=== PATIENT | female | born 1970 | race Caucasian/White ===

== ENCOUNTER 2017-12-05 06:43 | Day surgery (SDC) | payer BC ==
[2017-12-05] MEDS ORDERED: Dextrose 5%-Lactated Ringers 1,000 ML IV SCH (07:30)
[2017-12-05] MEDS ORDERED: Glycopyrrolate 0.2 MG/ML 2 ML SDV IVPUSH ONE (08:15)
[2017-12-05] MEDS ORDERED: fentaNYL 100 MCG/2 ML SDV ONE (10:02)
[2017-12-05] MEDS ORDERED: Propofol 200 MG/20 ML SDV ONE (10:02)
[2017-12-05] MEDS ORDERED: Midazolam 1 MG/ML 2 ML SDV ONE (10:03)
[2017-12-05 12:09] VITALS: BP 158/91
--- NOTE | 2017-12-16 12:55 | OR ---
DATE OF PROCEDURE: 12/05/2017 PREOPERATIVE DIAGNOSIS: Gastroesophageal reflux disease refractory to medical management. POSTOPERATIVE DIAGNOSES: 1. Gastroesophageal reflux disease refractory to medical management with moderate-sized hiatal hernia and wide-open esophagogastric junction with free bilious reflux. 2. Mild antral gastritis. OPERATIVE PROCEDURES: Upper GI endoscopy with; 1. Biopsy of the esophagogastric junction for histologic evaluation. 2. Biopsies of antrum for CLOtest. ANESTHESIA: IV sedation. INDICATIONS FOR PROCEDURE: This is a 47-year-old presenting with gastroesophageal reflux disease that has become progressively refractory to medical management. After preoperative evaluation and discussion, she wished to proceed with an upper GI endoscopy with biopsies and/or dilation as indicated. Potential risks of the procedure including bleeding and perforation were discussed, and the patient wishes to proceed. DETAILS OF PROCEDURE: The patient was taken to the operating room and placed in a left lateral decubitus position. IV sedation was administered, after which the upper GI endoscope was passed through the length of the esophagus and into the stomach with retroflexion view of the fundus, thereafter through the pyloric channel to the junction of the third and fourth portions of the duodenum. The patient was noted to have a normal hypopharynx, larynx, and upper esophageal sphincter. As one approached the EG junction, there was a quite marked inflammation of the distal esophagus with a moderate-size, roughly 3 to 4 cm hiatal hernia. This resulted in an essentially wide-open intersection between the distal esophagus and stomach, and there was free bilious reflux recorded throughout the area when this region was visualized. The mucosa at the EG junction was edematous and friable. 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 The remainder of the stomach was unremarkable other than some mild redness in the antral area, the visualized portion of the pyloric sphincter and duodenum were unremarkable. At this point, biopsies were obtained from the antrum and sent for CLOtest for H. pylori. Multiple biopsies were then obtained from the area of esophagogastric junction targeting the columnar mucosal areas that might be occupying the Conway esophagus. Minimal bleeding from the biopsy sites was seen, and the procedure then concluded. It was discussed with the patient preoperatively that should the findings seem appropriate, she would like to proceed with a surgical antireflux procedure as despite medical management, she is waking up with bilious aspiration and such and would like in addition to get off medical management. She does not have any dysphasia per se, and the diagnosis of the reflux disease at this point is not, to an extent, uncertain. Given this, the patient would like to proceed with a Giovany fundoplication. We will wait until the latter part of next week so we have the pathology report back. Potential risks of the procedure including bleeding, infection, injury to underlying viscera, problems with the fundoplication such as dysphagia, gas-bloat syndrome, disorders of gastric emptying rate, as well as incomplete relief of the reflux symptoms were all reviewed, and the patient wishes to proceed. This will be scheduled for 12/12/2017. Mann Mendez MD /[id number]
== END 2017-12-05 12:45 | disposition home or self-care (01) ==
LOC: JP.SDS 06:43
PROVIDERS: ATTEND Surgery
DX: K21.9 Gastro-esophageal reflux disease without esophagitis (principal); K29.50 Unspecified chronic gastritis without bleeding; K44.9 Diaphragmatic hernia without obstruction or gangrene; K22.70 Barrett's esophagus without dysplasia; K20.9 Esophagitis, unspecified; E78.5 Hyperlipidemia, unspecified; E05.00 Thyrotoxicosis with diffuse goiter without thyrotoxic crisis or storm; E66.9 Obesity, unspecified; Z68.31 Body mass index [BMI] 31.0-31.9, adult; F41.9 Anxiety disorder, unspecified; F32.9 Major depressive disorder, single episode, unspecified; Z88.1 Allergy status to other antibiotic agents; Z88.2 Allergy status to sulfonamides; Z88.5 Allergy status to narcotic agent; Z88.8 Allergy status to other drugs, medicaments and biological substances
CPT/HCPCS: 36415; 43239; 80053; 83735; 85027; 87081; 88305; J2250; J2704; J3010; J3490; J7042

== ENCOUNTER 2017-12-12 09:16 | Inpatient (IN) | payer BC ==
[~2017-12-12 09:16] MED LIST: Bupivacaine 0.5%/EPINEPHrine 1:200,000 50 ML MDV ONE
[2017-12-12] MEDS ORDERED: Scopolamine 1.5 MG Transdermal Patch TRDERM SCH (09:30)
[2017-12-12] MEDS ORDERED: Acetaminophen 500 MG Tab PO ONE (09:30)
[2017-12-12] MEDS ORDERED: Dextrose 5%-Lactated Ringers 1,000 ML IV SCH (10:00)
[2017-12-12] MEDS ORDERED: Albuterol/Ipratropium 3.0-0.5 MG/3 ML Neb Soln NEB ONE (10:30)
[2017-12-12] MEDS ORDERED: Ondansetron 4 MG/2 ML SDV ONE (10:35)
[2017-12-12] MEDS ORDERED: Succinylcholine 200 MG/10 ML MDV ONE (10:35)
[2017-12-12] MEDS ORDERED: Rocuronium 50 MG/5 ML Vial ONE (10:35)
[2017-12-12] MEDS ORDERED: Propofol 200 MG/20 ML SDV ONE (10:35)
[2017-12-12] MEDS ORDERED: Neostigmine Methylsulfate 1 MG/ML 5 ML Syringe ONE (10:35)
[2017-12-12] MEDS ORDERED: Glycopyrrolate 0.2 MG/ML 5 ML MDV ONE (10:35)
[2017-12-12] MEDS ORDERED: Dexamethasone 4 MG/ML SDV ONE (10:35)
[2017-12-12] MEDS ORDERED: fentaNYL 250 MCG/5 ML SDV ONE ×2 (10:36→11:35)
[2017-12-12] MEDS ORDERED: ceFAZolin 2 GM in Sodium Chloride 0.9% 50 ML IV ONE (11:00)
[2017-12-12] MEDS ORDERED: Ketamine 500 MG/5 ML MDV IV SCH (11:15)
[2017-12-12] MEDS ORDERED: Ropivacaine 46 ML, Dexamethasone 8 MG, EPINEPHrine 0.4 MG, Sodium Chloride 0.9% 31.6 ML NERVRT SCH ×4 (11:15)
[2017-12-12] MEDS ORDERED: HYDROmorphone/Normal Saline 15 MG/30 ML PCA IV PRN (12:43)
[2017-12-12] MEDS ORDERED: hydrOXYzine HCl 100 MG/2 ML SDV IM ONE (12:51)
[2017-12-12] MEDS ORDERED: Naloxone 0.4 MG/ML SDV IV PRN (12:55)
[2017-12-12] MEDS ORDERED: Ondansetron 4 MG/2 ML SDV IV PRN (14:09)
[2017-12-12] MEDS ORDERED: Albuterol/Ipratropium 3.0-0.5 MG/3 ML Neb Soln INH PRN (14:10)
[2017-12-12] MEDS ORDERED: LORazepam 1 MG Tab PO PRN (14:12)
[2017-12-12] MEDS: Albuterol/Ipratropium 3.0-0.5 MG/3 ML Neb Soln INH SCH ×2 (14:31→21:29)
[2017-12-12] MEDS ORDERED: Pantoprazole 40 MG Vial IV SCH (15:30)
[2017-12-12] MEDS: Metoclopramide 10 MG/2 ML SDV IV SCH (16:16)
[2017-12-12] MEDS: VERIFY SCOP PATCH TOP SCH (17:57)
[2017-12-12] MEDS: ceFAZolin 2 GM in Sodium Chloride 0.9% 50 ML IV SCH (18:04)
[2017-12-12] MEDS: Dextrose 5%-Lactated Ringers 1,000 ML IV SCH (18:07)
[2017-12-12] MEDS: Azelastine Nasal Soln 30 ML Spray Bottle NASBOTH SCH (21:28)
[2017-12-12] MEDS: DULoxetine 20 MG Cap PO SCH (21:29)
[2017-12-12] MEDS: Fluticasone Propionate Nasal Spray 16 GM Bottle NASBOTH SCH (21:30)
[2017-12-13] MEDS: Metoclopramide 10 MG/2 ML SDV IV SCH ×2 (00:19→09:15)
[2017-12-13] MEDS: Dextrose 5%-Lactated Ringers 1,000 ML IV SCH (01:15)
[2017-12-13] MEDS: ceFAZolin 2 GM in Sodium Chloride 0.9% 50 ML IV SCH ×2 (02:03→09:40)
[2017-12-13] MEDS: Albuterol/Ipratropium 3.0-0.5 MG/3 ML Neb Soln INH SCH ×2 (07:15→10:57)
[2017-12-13] MEDS ORDERED: Dextrose 5%-Lactated Ringers 1,000 ML IV SCH (08:30)
[2017-12-13] MEDS ORDERED: HYDROmorphone 2 MG Tab PO PRN ×2 (08:33→08:34)
[2017-12-13 08:56] VITALS: BP 122/60
[2017-12-13] MEDS ORDERED: Estradiol 0.5 MG Tab PO SCH (09:00)
[2017-12-13] MEDS: Azelastine Nasal Soln 30 ML Spray Bottle NASBOTH SCH (09:16)
[2017-12-13] MEDS: DULoxetine 20 MG Cap PO SCH (09:17)
[2017-12-13] MEDS: VERIFY SCOP PATCH TOP SCH (09:18)
[2017-12-13] MEDS: Fluticasone Propionate Nasal Spray 16 GM Bottle NASBOTH SCH (09:18)
--- NOTE | 2017-12-15 14:29 | PN ---
DATE OF SERVICE: 12/13/2017 The patient is postop day #1 from a laparoscopic Giovany fundoplication. No major problems were noted overnight and liquid diet. We will go over to oral pain medication. Full-liquid diet today. She will likely be ready for discharge home tomorrow. Mann Mendez MD /[id number]
--- NOTE | 2017-12-19 14:00 | OR ---
DATE OF PROCEDURE: 12/12/2017 PREOPERATIVE DIAGNOSIS: Gastroesophageal reflux disease refractory to medical management. POSTOPERATIVE DIAGNOSES: 1. Gastroesophageal reflux disease refractory to medical management, associated with large paraesophageal diaphragmatic hernia. 2. Mediastinal lipoma. OPERATIVE PROCEDURES: Diagnostic laparoscopy with; 1. Repair of paraesophageal diaphragmatic hernia with mesh with Giovany fundoplication (08755). 2. Excision of mediastinal lipoma ([id number]). ANESTHESIA: General. INDICATION FOR PROCEDURE: This is a 47-year-old presenting with gastroesophageal reflux disease that has become refractory to medical management. After preoperative evaluation and discussion, she wished to proceed with a Giovany fundoplication. Potential risks of the procedure including bleeding, infection, injury to underlying viscera, problems with fundoplication such as dysphagia, gas-bloat syndrome, disorders of gastric emptying rate as well as incomplete relief of reflux symptoms were all reviewed along with the remote possibility of cardiopulmonary, septic, or hemorrhagic complications leading to , and the patient wishes to proceed. DETAILS OF PROCEDURE: The patient was taken to the operating room and after general endotracheal anesthesia was induced, she was converted to a lithotomy position. Barlow catheter was inserted, which was removed at the conclusion of the procedure, and the abdomen was prepped and draped. A 15 cm inferior and 5 cm left of xiphoid process, a transverse incision was made. The peritoneal cavity was entered under direct vision with an Optiview trocar and inflated to 15 mmHg pressure of CO2. The laparoscope was reinserted and no underlying trocar insertion site injury was seen. Bilateral transversus abdominis plane blocks were then placed with direct visualization of the needle in the correct plane from within and injection of the standard solution bilaterally. Following this, 4 additional trocars were placed across the upper and midabdomen, and general exploration was undertaken. Upon elevation of the liver, the patient was noted to have significant paraesophageal component to her hiatal hernia. The latter contained prolapse of some perigastric fat, fundus of the stomach, and a tongue of omentum in a plane anterior to the course of the esophagus. The hernia was reduced at this point and peritoneum overlying it was incised and was reflected downward. Peritoneum over distal esophagus on each side was then incised allowing dissection of the esophagus away from the crura bilaterally. The retroesophageal window was then established, and the attachments of the esophagus were then freed up with Harmonic scalpel such that a roughly 5 cm length of intraabdominal-esophageal length was reached. Posterior crural repair was accomplished with 0 Ethibond sutures reinforced with PTFE pledgets. Because of the size of the defect, a Phasix ST mesh was selected. This was cut such that it laid over the area of the crural repair and slightly on to the crura on each side and was fixed to the crura with some titanium tacking screws. The mesh was fixed as such the Seprafilm side of the mesh was facing the esophagus. The greater omentum was then taken down from the midbody of the stomach with Harmonic Scalpel. This was continued upward through the short gastric vessels including the posterior and short gastric vessels. This area was then freed up to the point where there was good mobilization of the fundus and it was retrieved through the retroesophageal window. A guidewire was then passed per Anesthesia orally and over this, a 54-Vietnamese Savary dilator was positioned across the esophagus and EG junction. A three-stitch 2 cm fundoplication was then accomplished with 0 Ethibond sutures reinforced with PTFE pledgets. Each of these sutures included bites of the underlying esophagus. The uppermost suture included the attachment to the overlying diaphragm and one additional stitch and pledget were then placed between the left side of the fundoplication and the overlying diaphragm as well. At that point, the dilator and wire were removed and fundoplication judged to be satisfactorily floppy. During the mediastinal dissection, a lipoma was identified, and this was excised and sent as a separate pathologic specimen. At that point, no further problems were noted. Trocars were removed, and the peritoneal cavity deflated. Incision at the 12-mm trocar site was closed at the fascia level with 0 Vicryl stitch and other sites closed with 4-0 Vicryl skin stitch. Dressing was applied. The patient was taken to the recovery room in a satisfactory condition. There were no evident complications. Mann Mendez MD /[id number]
== END 2017-12-13 13:40 | disposition home or self-care (01) | DRG 220 ==
LOC: JP.MS 09:16 → JP.SDS 09:16 → JP.2SS 12:35 → EDSTATUS 13:45
PROVIDERS: ADMIT Surgery; ATTEND Surgery
PROC: 0DV44ZZ Restriction of Esophagogastric Junction, Percutaneous Endoscopic Approach (ICD-10-PCS; principal; 2017-12-12)
PROC: 0BQT4ZZ Repair Diaphragm, Percutaneous Endoscopic Approach (ICD-10-PCS; 2017-12-12)
PROC: 0WBC4ZX Excision of Mediastinum, Percutaneous Endoscopic Approach, Diagnostic (ICD-10-PCS; 2017-12-12)
PROC: 3E0T3BZ Introduction of Anesthetic Agent into Peripheral Nerves and Plexi, Percutaneous Approach (ICD-10-PCS; 2017-12-12)
DX: K21.9 Gastro-esophageal reflux disease without esophagitis (principal); K44.9 Diaphragmatic hernia without obstruction or gangrene; D17.4 Benign lipomatous neoplasm of intrathoracic organs
CPT/HCPCS: 88304; 94640; 94762; A9270-GY; C1781; C9113; J0171; J0330; J0690; J1100; J1170; J2405; J2704; J2710; J2765; J2795; J3010; J3410; J3490; J7042; J7050; J7620-GY

== ENCOUNTER 2018-08-30 10:10 | Emergency (ER) | payer BC ==
[2018-08-30 10:29] VITALS: BP 148/86
--- NOTE | 2018-08-30 11:00 | EDM.PDOC ---
ED HPI GENERAL MEDICAL PROBLEM - General Chief Complaint: Back Pain or Injury Stated Complaint: BACK PAIN WAITING FOR MRI Time Seen by Provider: 08/30/18 10:51 Source of Information: Reports: Patient History Limitations: Reports: No Limitations - History of Present Illness INITIAL COMMENTS - FREE TEXT/NARRATIVE: Patient presents from home describing worsening long-term back pain over recent time. She has a history of prior back trouble surgery 15 or so years ago. She recently was seen in primary care and had cyclobenzaprine prescribed for symptoms. It hasn't really changed much with her overall back pain scenario. The are attempting to get her scheduled for repeat lumbar spine MRI as it has been approximately 2 years since her last one. At that time it did show a number of degenerative changes and apparently disc displacement. She has noticed pain going from the low left portion of the back through the buttock as well as thigh and leg. There is a tingling feeling through much of the left foot. She has had to have her helped her get out of chairs and other positions as its been very uncomfortable to change position. She describes having leg weakness but what she means as it hurts when she attempts to use the left leg. No falls or other injuries recently. Onset: Gradual Duration: Chronic, Getting Worse Location: Reports: Back, Lower Extremity, Left Quality: Reports: Ache, Burning, Stabbing Lower Back Pain Score (Numeric/FACES): 9 - Related Data Allergies Allergy/AdvReac Type Severity Reaction Status Date / Time amoxicillin [Amoxicillin] Allergy Hives Verified 08/30/18 10:28 methylprednisolone sodium Allergy Swelling Verified 08/30/18 10:28 succinate [From Solu-Medrol] oxycodone HCl [From Percocet] Allergy Hives Verified 08/30/18 10:28 Sulfa (Sulfonamide Allergy Cannot Verified 08/30/18 10:28 Antibiotics) Remember sulfamethoxazole Allergy Cannot Verified 08/30/18 10:28 [From Bactrim] Remember trimethoprim [From Bactrim] Allergy Cannot Verified 08/30/18 10:28 Remember Home Meds: Home Meds Albuterol [Proventil HFA] 2 puff PO Q4H PRN 07/01/15 [History] Multivitamin [Multi-Vitamin Daily] 1 tab PO DAILY 07/01/15 [History] DULoxetine HCl [Cymbalta] 20 mg PO BID 02/23/16 [History] LORazepam [Ativan] 1 mg PO TID 09/18/17 [History] Azelastine [Astelin Nasal Soln] 1 spray NASBOTH BID 12/03/17 [History] Cholecalciferol (Vitamin D3) [Vitamin D3] 4,000 unit PO DAILY 12/03/17 [History] Diclofenac Sodium [Voltaren] 2 gram TOP QID 12/03/17 [History] Fluticasone Propionate [Flonase Allergy Relief] 1 spray NASBOTH BID 12/03/17 [ History] Acetaminophen [Tylenol] 650 mg PO Q4H PRN #60 tab 12/13/17 [Rx] Past Medical History HEENT History: Reports: Allergic Rhinitis, Impaired Vision Cardiovascular History: Reports: Heart Murmur Respiratory History: Reports: Other (See Below) Other Respiratory History: inhaler for allergies, uses as needed Gastrointestinal History: Reports: Chronic Diarrhea, GERD, Hiatal Hernia Genitourinary History: Reports: None MANAGER BAR History: Reports: Endometriosis, Polycystic Ovaries, , Spontaneous Musculoskeletal History: Reports: Arthritis, Back Pain, Chronic, Fibromyalgia, Neck Pain, Chronic Neurological History: Reports: Headaches, Chronic, Migraines Psychiatric History: Reports: Anxiety, Depression, PTSD Other Endocrine/Metabolic History: graves disease Hematologic History: Reports: Anemia Other Hematologic History: anemic with - Infectious Disease History Infectious Disease History: Reports: Chicken Pox, Measles - Past Surgical History Head Surgeries/Procedures: Reports: None HEENT Surgical History: Reports: Other (See Below) Other HEENT Surgeries/Procedures: permanent retainer top and bottom of mouth Cardiovascular Surgical History: Reports: None Respiratory Surgical History: Reports: None GI Surgical History: Reports: Colonoscopy, EGD, Other (See Below) Female Surgical History: Reports: Tubal Ligation, Other (See Below) Endocrine Surgical History: Reports: None Neurological Surgical History: Reports: Lumbar Spine, Other (See Below) Musculoskeletal Surgical History: Reports: None Dermatological Surgical History: Reports: None Social & Family History - Family History Family Medical History: Noncontributory - Tobacco Use Smoking Status *Q: Former Smoker Used Tobacco, but Quit: Yes Month/Year Tobacco Last Used: 1999 Second Hand Smoke Exposure: No - Caffeine Use Caffeine Use: Reports: Coffee Caffeine Use Comment: 2 cups daily - Recreational Drug Use Recreational Drug Use: No ED ROS GENERAL - Review of Systems Review Of Systems: See Below Constitutional: Denies: Fever, Chills Musculoskeletal: Reports: Back Pain Neurological: Reports: Tingling (Left leg/thigh) ED EXAM,LOWER BACK PAIN/INJURY - Physical Exam Exam: See Below Exam Limited By: No Limitations General Appearance: Mild Distress Back Exam: CVA Tenderness (L), Paraspinal Tenderness, Vertebral Tenderness. No : Muscle Spasm Extremities: Other (Increased pain with left hip extension as well as dorsiflexion of the foot.) Neurological: Normal Reflexes Course - Vital Signs Last Recorded V/S: Last Vital Signs Temp 36.2 C 08/30/18 10:31 Pulse 75 08/30/18 10:31 Resp 17 08/30/18 10:31 BP 148/86 H 08/30/18 10:31 Pulse Ox 92 L 08/30/18 10:31 - Re-Assessments/Exams Free Text/Narrative Re-Assessment/Exam: 08/30/18 11:08 Patient's description of symptoms and exam are consistent with a lumbosacral radiculopathy. She really has had minimal results from Toradol, ibuprofen, cyclobenzaprine. There are no red flag symptoms. Prescriptions sent for indomethacin 50 mg, 21 tablets; hydrocodone 5/325 mg, 20 tablets; both use as directed. She is aware of other palliative measures for her back including stretching, walking, cold packs etc. She can use the previously prescribed cyclobenzaprine if she wishes. She should not take ibuprofen with indomethacin. Contact primary care this next week to ask about status of MR imaging. Reasons to return to emergency department reviewed. Departure - Departure Time of Disposition: 11:10 Disposition: Home, Self-Care 01 Condition: Good Clinical Impression: Sciatica, Sciatica associated with disorder of lumbosacral spine - Discharge Information *PRESCRIPTION DRUG MONITORING PROGRAM REVIEWED*: Not Applicable *COPY OF PRESCRIPTION DRUG MONITORING REPORT IN PATIENT RUMA: Not Applicable Instructions: Sciatica, [id number] Referrals: Ashley Hernadez PA [Primary Care Provider] - Forms: ED Department Discharge Additional Instructions: Use cold packs or other temporizing measures to painful area as he feel necessary. Stop ibuprofen. He may continue the cyclobenzaprine if you wish. Start indomethacin and hydrocodone today. Be as mobile as you're able. If you have of leg weakness, not pain with movement however, or loss of ability to hold urine, return to emergency department.
== END 2018-08-30 11:24 | disposition home or self-care (01) ==
LOC: JP.ED 10:10
DX: M54.32 Sciatica, left side (principal); M51.36 Other intervertebral disc degeneration, lumbar region; F41.9 Anxiety disorder, unspecified; F32.9 Major depressive disorder, single episode, unspecified; Z87.891 Personal history of nicotine dependence; Z88.1 Allergy status to other antibiotic agents; Z88.5 Allergy status to narcotic agent; Z88.2 Allergy status to sulfonamides; Z79.899 Other long term (current) drug therapy
CPT/HCPCS: 99283

== ENCOUNTER 2020-08-25 08:14 | Day surgery (SDC) | payer BC, MEDICARE ==
[2020-08-25] MEDS ORDERED: Dextrose 5%-Lactated Ringers 1,000 ML IV SCH (09:00)
[2020-08-25] MEDS ORDERED: Midazolam 1 MG/ML 2 ML SDV ONE (09:04)
[2020-08-25] MEDS ORDERED: Propofol 200 MG/20 ML SDV ONE (09:04)
[2020-08-25] MEDS ORDERED: fentaNYL 100 MCG/2 ML SDV ONE (09:04)
[2020-08-25] MEDS ORDERED: Glycopyrrolate 0.2 MG/ML 2 ML SDV IVPUSH ONE (09:30)
[2020-08-25 11:41] VITALS: BP 171/87; PULSE 64
--- NOTE | 2020-09-07 08:34 | OR ---
DATE OF PROCEDURE: 08/25/2020 SURGEON: Mann Mendez MD PREOPERATIVE DIAGNOSES: Dysphagia, bloating, and recurrent reflux symptoms, status post previous Giovany fundoplication. POSTOPERATIVE DIAGNOSES: 1. Intact Giovany fundoplication with a small to moderate recurrence of diaphragmatic hernia. 2. Large amount of retained gastric food (bezoar) with diffuse gastritis consistent with severe gastroparesis. OPERATIVE PROCEDURE: Esophagogastroduodenoscopy with antral biopsies for CLOtest. ANESTHESIA: IV sedation. INDICATION FOR PROCEDURE: The patient is status post previous Giovany fundoplication. She has had increasing problems with some recurrent reflux, but more significantly dysphagia and major problem with postprandial bloating. The plan is to proceed with upper GI endoscopy with biopsies as indicated. Potential risks including bleeding and perforation were discussed, and the patient wishes to proceed. DETAILS OF PROCEDURE: The patient was taken to the operating room and placed in the left lateral decubitus position. IV sedation was administered, after which the upper GI endoscope was passed orally through the length of the esophagus into the stomach with retroflexion view of the fundus, and thereafter through the pyloric channel into the proximal duodenum. Findings included some mild redness in the laryngopharyngeal area. The upper esophageal sphincter and esophageal body were unremarkable as one approached the EG junction. There was a small amount of inflammation at the EG junction, but was otherwise intact and this was on retroflexion within the stomach, there was an element of recurrence of the diaphragmatic hernia with a portion of the fundoplication and the EG junction area passing up to within the opening of the diaphragm. Within the stomach, there was a large gastric bezoar present with large amount of retained fluid present in that area. This was associated with diffuse redness in the gastric wall likely related to contact with the bezoar. The overall picture was consistent with gastroparesis. The scope could easily pass through the pylorus into the proximal duodenum, i.e., there was no evidence of any mechanical obstruction, i.e., no gastric outlet obstruction noted. At this point, biopsies were obtained from the antrum and sent for CLOtest for H pylori. Minimal bleeding from the biopsy site was seen and the procedure then concluded. After the patient had recovered from anesthetic, a long discussion was held with the patient and her mother who was present regarding treatment options. It is very unlikely that the medical management would be satisfactory long-term, particularly with likely progressively increasing the size of the recurrent hiatal hernia. Given this, with the concurrent diagnosis of gastroparesis, the resectional procedure would probably be best along with concurrent repair of the diaphragmatic hernia. This would involve a high partial gastrectomy with Kamila-en-Y reconstruction. The patient's BMI is 32.5, so the weight loss typically is seen with this type of procedure and would be somewhat beneficial that will sometimes onto the esophagus when the proximal anastomosis was gone over and the fact that this physiologically is not at all significantly different from an anastomosis to a very high gastric pouch. Potential risks were reviewed with the patient and she was given a general article from the [facility] regarding resectional procedures for gastroesophageal reflux disease found in previous fundoplications, and she will be calling us after discussion of this with her and her family members and answering any additional questions in the interim in terms of when and if to proceed with the above surgical procedure. Mann Mendez MD /[id number]
== END 2020-08-25 13:00 | disposition home or self-care (01) ==
LOC: JP.SDS 08:14
PROVIDERS: ATTEND Surgery
DX: K20.90 Esophagitis, unspecified without bleeding (principal); K44.9 Diaphragmatic hernia without obstruction or gangrene; J45.909 Unspecified asthma, uncomplicated; E05.90 Thyrotoxicosis, unspecified without thyrotoxic crisis or storm; E78.00 Pure hypercholesterolemia, unspecified; Z98.890 Other specified postprocedural states
CPT/HCPCS: 43239; 87081; J2250; J2704; J3010; J3490; J7121

== ENCOUNTER 2020-08-29 07:53 | Inpatient (IN) | payer BC, MEDICARE ==
[~2020-08-29 07:53] MED LIST changes: -Bupivacaine 0.5%/EPINEPHrine 1:200,000 50 ML MDV ONE; +cefOXitin 2 GM Vial ONE
[2020-08-29] MEDS ORDERED: Acetaminophen 500 MG Tab PO ONE (08:15)
[2020-08-29] MEDS ORDERED: Scopolamine 1.5 MG Transdermal Patch TOP ONE (08:15)
[2020-08-29] MEDS ORDERED: Albuterol/Ipratropium 3.0-0.5 MG/3 ML Neb Soln NEB ONE (09:00)
[2020-08-29] MEDS ORDERED: Dextrose 5%-Lactated Ringers 1,000 ML IV SCH (09:00)
[2020-08-29] MEDS ORDERED: diphenhydrAMINE 25 MG Cap PO PRN (09:04)
[2020-08-29] MEDS ORDERED: Naloxone 0.4 MG/ML SDV IVPUSH PRN (09:04)
[2020-08-29] MEDS ORDERED: diphenhydrAMINE 50 MG/ML SDV IVPUSH PRN (09:04)
[2020-08-29] MEDS ORDERED: Ondansetron 4 MG/2 ML SDV IVPUSH PRN (09:04)
[2020-08-29] MEDS: HYDROmorphone/Normal Saline 15 MG/30 ML PCA IV PRN (09:58)
[2020-08-29] MEDS ORDERED: cefOXitin 2 GM in Sodium Chloride 0.9% 50 ML IV ONE (10:00)
[2020-08-29] MEDS ORDERED: fentaNYL 250 MCG/5 ML SDV ONE ×2 (10:18→11:17)
[2020-08-29] MEDS ORDERED: Dexamethasone 4 MG/ML SDV ONE (10:19)
[2020-08-29] MEDS ORDERED: Ondansetron 4 MG/2 ML SDV ONE (10:19)
[2020-08-29] MEDS ORDERED: Glycopyrrolate 0.2 MG/ML 5 ML MDV ONE (10:19)
[2020-08-29] MEDS ORDERED: Succinylcholine 200 MG/10 ML MDV ONE (10:19)
[2020-08-29] MEDS ORDERED: Neostigmine Methylsulfate 1 MG/ML 5 ML Syringe ONE (10:19)
[2020-08-29] MEDS ORDERED: Propofol 200 MG/20 ML SDV ONE (10:19)
[2020-08-29] MEDS ORDERED: Rocuronium 50 MG/5 ML Vial ONE (10:19)
[2020-08-29] MEDS ORDERED: Lactated Ringers 1,000 ML ONE (10:22)
[2020-08-29] MEDS ORDERED: Ketamine 500 MG/5 ML MDV IV SCH (10:30)
[2020-08-29] MEDS ORDERED: Magnesium Sulfate 2.8 GM in Sodium Chloride 0.9% 100 ML IV SCH ×2 (10:30)
[2020-08-29] MEDS ORDERED: Ketamine 50 MG in Sodium Chloride 0.9% 49.5 ML IV SCH (10:30)
[2020-08-29] MEDS ORDERED: Labetalol 20 MG/4 ML Syringe ONE (11:36)
[2020-08-29] MEDS: Meropenem 500 MG SDV ONE ×2 (11:44→12:15)
[2020-08-29] MEDS ORDERED: hydrOXYzine HCL 100 MG/2 ML SDV IM ONE (13:05)
[2020-08-29] MEDS ORDERED: fentaNYL 100 MCG/2 ML SDV IVPUSH ONE (13:07)
[2020-08-29] MEDS ORDERED: Naloxone 0.4 MG/ML SDV IV PRN (14:00)
[2020-08-29] MEDS: Dextrose 5%-Lactated Ringers 1,000 ML IV SCH (14:26)
[2020-08-29] MEDS: Cyclobenzaprine 10 MG Tab PO PRN (14:41)
[2020-08-29] MEDS: Albuterol/Ipratropium 3.0-0.5 MG/3 ML Neb Soln INH SCH ×2 (14:55→20:58)
[2020-08-29] MEDS ORDERED: Calcium Gluconate 10% 1 GM/10 ML SDV IVPUSH PRN (15:00)
[2020-08-29] MEDS ORDERED: Labetalol 20 MG/4 ML Syringe IVPUSH PRN (15:00)
[2020-08-29] MEDS ORDERED: Acetaminophen 500 MG Tab PO PRN (15:00)
[2020-08-29] MEDS ORDERED: Metoclopramide 10 MG/2 ML SDV IVPUSH PRN (15:00)
[2020-08-29] MEDS ORDERED: Albuterol/Ipratropium 3.0-0.5 MG/3 ML Neb Soln INH PRN (15:00)
[2020-08-29] MEDS ORDERED: hydrOXYzine HCL 100 MG/2 ML SDV IM PRN (15:00)
[2020-08-29] MEDS ORDERED: Pantoprazole 40 MG Vial IVPUSH SCH (16:00)
[2020-08-29] MEDS ORDERED: MVI, Adult with Vitamin K 10 ML, Thiamine 200 MG, Zinc/Copper/Manganese/Selenium 1 ML i... IV SCH ×4 (16:00)
[2020-08-29] MEDS: Acetaminophen 500 MG Tab PO SCH (16:05)
[2020-08-29] MEDS: cefOXitin 2 GM in Sodium Chloride 0.9% 50 ML IV SCH ×2 (16:16→21:02)
[2020-08-29] MEDS: Heparin Sodium 5,000 Units/ML Vial SUBCUT SCH (20:58)
[2020-08-29] MEDS: Azelastine Nasal Soln 30 ML Spray Bottle NASBOTH SCH ×2 (20:59→21:02)
[2020-08-30] MEDS: Acetaminophen 500 MG Tab PO SCH ×3 (00:10→17:39)
[2020-08-30] MEDS: Dextrose 5%-Lactated Ringers 1,000 ML IV SCH ×4 (00:11→14:35)
[2020-08-30] MEDS: cefOXitin 2 GM in Sodium Chloride 0.9% 50 ML IV SCH ×4 (03:37→21:35)
[2020-08-30] MEDS ORDERED: Iopamidol 612 MG/ML 50 ML SDV PO STA (04:08)
[2020-08-30] MEDS: Albuterol/Ipratropium 3.0-0.5 MG/3 ML Neb Soln INH SCH ×4 (07:04→20:20)
[2020-08-30] MEDS: Levothyroxine 25 MCG Tab PO SCH (07:31)
[2020-08-30] MEDS: SCOPOLAMINE PATCH CHECK TOP SCH (08:57)
[2020-08-30] MEDS: Metoprolol Succinate 25 MG Tab.ER PO SCH (08:58)
[2020-08-30] MEDS: Estradiol 0.5 MG Tab PO SCH (08:59)
[2020-08-30] MEDS: Fluticasone Propionate Nasal Spray 16 GM Bottle NAS SCH (08:59)
[2020-08-30] MEDS: Azelastine Nasal Soln 30 ML Spray Bottle NASBOTH SCH ×2 (08:59→20:29)
[2020-08-30] MEDS: Heparin Sodium 5,000 Units/ML Vial SUBCUT SCH ×2 (08:59→20:20)
--- NOTE | 2020-08-30 09:11 | CRLCR ---
Indication: Gastric sleeve surgery Technique: Upper GI 3 views Comparison: None Findings/Impression: Postoperative findings from gastric sleeve surgery. Oral contrast passes through the stomach into the small bowel. No sign of contrast extravasation/leak. No acute abnormality evident. Dictated by: Brian Man MD @ 08/30/2020 09:08:59 (Electronically Signed)
--- NOTE | 2020-08-30 09:54 | PN ---
DATE OF SERVICE: 08/30/2020 SUBJECTIVE: Hortencia states that she has most of her pain when she swallows. It feels like the liquid is not going all the way down. She has been on step 1. Upper GI this morning was normal. Pain is controlled with the PHYSICIAN REPRESENTATIVE. Her oral intake was 210, output 1135 of clear tejas urine via Barlow catheter, and TYRA drain put out 190 mL of a red drainage. REVIEW OF SYSTEMS: Remainder of review of systems negative for any pertinent positives and negatives. OBJECTIVE: GENERAL: Hortencia Sanchez is a pleasant 50-year-old female. She is alert and oriented, lying in bed with the head of bed elevated. VITAL SIGNS: TPR is 97.7, 77, 16, blood pressure 161/80. HEENT: Negative. NECK: Supple. HEART: Regular rate and rhythm. LUNGS: Clear. ABDOMEN: Dressings dry and intact. TYRA drain as above. Abdominal binder on. EXTREMITIES: Without peripheral edema. ASSESSMENT: Exploratory laparotomy with: 1. Esophagogastrectomy with Kamila-en-Y esophagojejunostomy. 2. Repair of recurrent paraesophageal hernia. POSTOPERATIVE DIAGNOSIS: Recurrent paraesophageal hernia with marked inflammation at the esophagogastric junction. Date of procedure 08/29/2020. Surgeon: Mann Mendez MD. PLAN: 1. Discontinue Barlow. 2. May shower. 3. Decrease IV to 100 mL per hour. 4. Step-2 gastric bypass diet without cereal. 5. Discontinue cardiac monitoring. 6. Communication order to drink 3 med cups per hour, record at bedside or 1 every 20 minutes. 7. We will evaluate p.r.n. or in a.m. Maya Jiang PA-C /[id number]
[2020-08-30] MEDS ORDERED: MVI, Adult with Vitamin K 10 ML, Thiamine 200 MG, Zinc/Copper/Manganese/Selenium 1 ML i... IV SCH ×4 (16:00)
[2020-08-30] MEDS: Pantoprazole 40 MG Delayed-Release Granules 1 Packet PO SCH (17:05)
[2020-08-30] MEDS ORDERED: Dexamethasone 4 MG/ML SDV IVPUSH ONE (17:34)
[2020-08-30] MEDS ORDERED: Acetaminophen Soln 160 MG/5 ML UD Cup PO SCH (18:00)
--- NOTE | 2020-08-30 18:57 | PCM.EKG ---
#1 Interpretation EKG Date: 08/29/20 Time: 08:16 Rhythm: NSR Rate (Beats/Min): 63 [place]: Normal P-Wave: Present QRS: Normal ST-T: Normal QT: Normal Comparison: NA - No Prior EKG EKG Interpretation Comments: LVH present
[2020-08-30] MEDS: Acetaminophen Soln 650 MG/20.3 ML UD Cup PO SCH (21:54)
[2020-08-31] MEDS: Dextrose 5%-Lactated Ringers 1,000 ML IV SCH ×2 (02:20→11:30)
[2020-08-31] MEDS: Acetaminophen Soln 650 MG/20.3 ML UD Cup PO SCH ×6 (02:34→22:51)
[2020-08-31] MEDS: Ondansetron 4 MG Tab.DIS PO PRN (05:15)
[2020-08-31] MEDS: Albuterol/Ipratropium 3.0-0.5 MG/3 ML Neb Soln INH SCH ×4 (07:33→20:34)
[2020-08-31] MEDS: Metoclopramide 10 MG/2 ML SDV IV SCH ×3 (08:26→20:34)
[2020-08-31] MEDS: Metoprolol Succinate 25 MG Tab.ER PO SCH (08:28)
[2020-08-31] MEDS: Scopolamine 1.5 MG Transdermal Patch TRDERM SCH (08:29)
[2020-08-31] MEDS: Levothyroxine 25 MCG Tab PO SCH (08:29)
[2020-08-31] MEDS: Estradiol 0.5 MG Tab PO SCH (08:29)
[2020-08-31] MEDS: Azelastine Nasal Soln 30 ML Spray Bottle NASBOTH SCH ×2 (08:30→20:32)
[2020-08-31] MEDS: Fluticasone Propionate Nasal Spray 16 GM Bottle NAS SCH (08:30)
[2020-08-31] MEDS: SCOPOLAMINE PATCH CHECK TOP SCH (08:31)
[2020-08-31] MEDS: Dexamethasone 4 MG/ML SDV IVPUSH SCH ×2 (08:43→20:33)
[2020-08-31] MEDS: Heparin Sodium 5,000 Units/ML Vial SUBCUT SCH ×2 (08:44→20:34)
[2020-08-31] MEDS ORDERED: Cyanocobalamin (Vitamin B12) 1,000 MCG/ML SDV IM ONE (09:00)
[2020-08-31] MEDS: HYDROmorphone/Normal Saline 15 MG/30 ML PCA IV PRN (10:15)
--- NOTE | 2020-08-31 11:37 | PN ---
DATE OF SERVICE: 08/31/2020 SUBJECTIVE: Hortencia had episodes of nausea, difficulty swallowing. Her oral intake was 775, output 3000. TYRA drain put out 80 mL of a light red drainage. She did receive Decadron 2 mg of IV yesterday, which she states did not help with the swelling at anastomosis. Her scopolamine patch she said fell off on the day of surgery. REVIEW OF SYSTEMS: Remainder of review of systems negative for any pertinent positives and negatives. OBJECTIVE: GENERAL: Hortencia is a pleasant 50-year-old female. She looks like she is not feeling well. VITAL SIGNS: TPR is 96.9, 77, 16, blood pressure is 163/92. HEENT: Negative. NECK: Supple. HEART: Regular rate and rhythm. LUNGS: Clear. ABDOMEN: Dressings dry and intact. TYRA drain intact. EXTREMITIES: Without peripheral edema. ASSESSMENT: Exploratory laparotomy with: 1. Esophagogastrectomy with Kamila-en-Y esophagojejunostomy. 2. Repair of recurrent paraesophageal hernia. POSTOPERATIVE DIAGNOSES: 1. Recurrent paraesophageal hernia with marked inflammation at the esophagogastric junction. 2. Date of procedure: 08/29/2020. Surgeon: Mann Mendez MD. PLAN: 1. Reglan 10 mg IV q.6 hours scheduled. 2. Scopolamine patch to be replaced. 3. Decadron 2 mg IV q.12 hours. 4. Continue use of incentive spirometer and ambulation. 5. We will evaluate p.r.n. or in a.m. Maya Jiang PA-C /[id number]
[2020-08-31] MEDS: Pantoprazole 40 MG Delayed-Release Granules 1 Packet PO SCH (17:00)
[2020-08-31] MEDS: diphenhydrAMINE 50 MG/ML SDV IVPUSH PRN (22:55)
[2020-09-01] MEDS: Acetaminophen Soln 650 MG/20.3 ML UD Cup PO SCH ×6 (02:17→21:52)
[2020-09-01] MEDS: Metoclopramide 10 MG/2 ML SDV IV SCH ×4 (02:17→19:27)
[2020-09-01] MEDS: diphenhydrAMINE 50 MG/ML SDV IVPUSH PRN (05:24)
[2020-09-01] MEDS: Levothyroxine 25 MCG Tab PO SCH (07:41)
[2020-09-01] MEDS: Heparin Sodium 5,000 Units/ML Vial SUBCUT SCH ×2 (07:51→19:27)
[2020-09-01] MEDS: Magnesium Hydroxide 400 MG/5 ML Susp 30 ML Cup PO SCH ×2 (09:46→20:55)
[2020-09-01] MEDS: Albuterol/Ipratropium 3.0-0.5 MG/3 ML Neb Soln INH SCH ×4 (09:46→20:55)
[2020-09-01] MEDS: Bisacodyl 5 MG Tab PO SCH ×2 (09:46→20:54)
[2020-09-01] MEDS: Estradiol 0.5 MG Tab PO SCH (09:48)
[2020-09-01] MEDS: Fluticasone Propionate Nasal Spray 16 GM Bottle NAS SCH (09:48)
[2020-09-01] MEDS: Azelastine Nasal Soln 30 ML Spray Bottle NASBOTH SCH ×2 (09:49→20:54)
[2020-09-01] MEDS: SCOPOLAMINE PATCH CHECK TOP SCH (09:50)
[2020-09-01] MEDS: Metoprolol Succinate 25 MG Tab.ER PO SCH (09:51)
[2020-09-01] MEDS: HYDROmorphone 2 MG Tab PO PRN ×4 (09:56→23:15)
[2020-09-01] MEDS: Dextrose 5%-Lactated Ringers 1,000 ML IV SCH ×2 (10:37→20:59)
--- NOTE | 2020-09-01 13:00 | PN ---
DATE OF SERVICE: 09/01/2020 SUBJECTIVE: Hortencia has had the Decadron every 4 hours. She feels like she can swallow better. She states it is slow but improving. Oral intake was 1450. Urine output 3200. TYRA drain put out 25 mL of a light red drainage. REVIEW OF SYSTEMS: Remainder of review of systems negative for any pertinent positives and negatives. OBJECTIVE: GENERAL: Hortencia is a pleasant 50-year-old female. She is alert and orientated. VITAL SIGNS: TPR 98.8, 64, 16, blood pressure 155/83. HEENT: Negative. NECK: Supple. HEART: Regular rate and rhythm. LUNGS: Clear. ABDOMEN: Aquacel dressing is on. EXTREMITIES: Without peripheral edema. ASSESSMENT: Exploratory laparotomy with: 1. Esophagogastrectomy with Kamila-en-Y esophagojejunostomy. 2. Repair of recurrent paraesophageal hernia. POSTOPERATIVE DIAGNOSES: 1. Recurrent paraesophageal hernia with marked inflammation at the esophagogastric junction. 2. Date of procedure: 08/29/2020. Surgeon: Mann Mendez MD. PLAN: 1. Discontinue Decadron. 2. Step 2 gastric bypass diet without cereal. 3. Milk of magnesia 30 mL p.o. b.i.d. 4. Dilaudid 2 to 4 mg every 4 hours p.r.n. pain. 5. 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 6. Dulcolax tablets 2 b.i.d. until the patient has bowel movement. 7. We will evaluate p.r.n. or in a.m. Maya Jiang PA-C /[id number]
[2020-09-01] MEDS: Pantoprazole 40 MG Delayed-Release Granules 1 Packet PO SCH (16:25)
[2020-09-01] MEDS: Ondansetron 4 MG Tab.DIS PO PRN (18:15)
[2020-09-02] MEDS: Metoclopramide 10 MG/2 ML SDV IV SCH ×4 (01:47→21:33)
[2020-09-02] MEDS: Acetaminophen Soln 650 MG/20.3 ML UD Cup PO SCH ×2 (01:47→06:03)
[2020-09-02] MEDS: Cyclobenzaprine 10 MG Tab PO PRN (01:50)
[2020-09-02] MEDS: Ondansetron 4 MG Tab.DIS PO PRN (01:50)
[2020-09-02] MEDS: Dextrose 5%-Lactated Ringers 1,000 ML IV SCH ×2 (07:00→17:13)
[2020-09-02] MEDS: Albuterol/Ipratropium 3.0-0.5 MG/3 ML Neb Soln INH SCH ×4 (07:03→21:34)
[2020-09-02] MEDS: Heparin Sodium 5,000 Units/ML Vial SUBCUT SCH ×2 (07:35→21:32)
[2020-09-02] MEDS: Levothyroxine 25 MCG Tab PO SCH ×2 (07:36→08:41)
[2020-09-02] MEDS: predniSONE 20 MG Tab PO SCH ×3 (07:36→14:19)
[2020-09-02] MEDS: Ondansetron 4 MG/2 ML SDV IVPUSH PRN ×2 (08:37→12:47)
[2020-09-02] MEDS: Azelastine Nasal Soln 30 ML Spray Bottle NASBOTH SCH ×2 (08:40→21:34)
--- NOTE | 2020-09-02 08:44 | PN ---
DATE OF SERVICE: 09/02/2020 SUBJECTIVE: Hortencia said she felt good yesterday, until in the middle of the night she felt like it was difficult for her to swallow again. Things felt tight. She is able to swallow pills and liquids. Decadron was stopped yesterday due to her face getting swollen and red and itchy. Oral intake was 830, output was 1950. TYRA drain put out 15 mL of a light red drainage. REVIEW OF SYSTEMS: Remainder of review of systems negative for any pertinent positives and negatives. OBJECTIVE: GENERAL: Hortencia is a pleasant 50-year-old female. VITAL SIGNS: TPR; 97.6, 85, 18, and blood pressure 151/89. HEENT: Negative. NECK: Supple. HEART: Regular rate and rhythm. LUNGS: Clear. ABDOMEN: Incision, shasha intact. Quite a bit of bruising is noted on the top 3rd of the incision, but it is soft. Skin is soft, not swollen. There is no seroma or hematoma. EXTREMITIES: Without peripheral edema. ASSESSMENT: Exploratory laparotomy with; 1. Esophagogastrectomy with Kamila-en-Y esophageal jejunostomy. 2. Repair of recurrent paraesophageal hernia. POSTOPERATIVE DIAGNOSES: 1. Recurrent paraesophageal hernia with marked inflammation at the esophagogastric junction. 2. Date of procedure: 08/29/2020. Surgeon: Mann Mendez MD. PLAN: 1. Prednisone 40 mg oral one dose now and one mid afternoon. 2. Tylenol and change to pills, unable to tolerate liquid. 3. Continue to sip on liquids as tolerated. 4. We will evaluate p.r.n. or in the a.m. Maya Jiang PA-C /[id number]
[2020-09-02] MEDS: Fluticasone Propionate Nasal Spray 16 GM Bottle NAS SCH (10:16)
[2020-09-02] MEDS: SCOPOLAMINE PATCH CHECK TOP SCH (10:17)
[2020-09-02] MEDS: Magnesium Hydroxide 400 MG/5 ML Susp 30 ML Cup PO SCH ×2 (12:11→21:35)
[2020-09-02] MEDS: Bisacodyl 5 MG Tab PO SCH ×2 (12:11→21:34)
[2020-09-02] MEDS: Estradiol 0.5 MG Tab PO SCH (12:11)
[2020-09-02] MEDS ORDERED: LORazepam 2 MG/ML SDV IVPUSH PRN (12:23)
[2020-09-02] MEDS ORDERED: traMADol 50 MG Tab PO PRN (12:35)
[2020-09-02] MEDS: Metoprolol Succinate 25 MG Tab.ER PO SCH (12:54)
[2020-09-02] MEDS ORDERED: Acetaminophen 1,000 MG in Premix Bag 1 BAG IV ONE (13:00)
[2020-09-02] MEDS: Acetaminophen 325 MG Tab PO PRN (16:57)
[2020-09-02] MEDS: Pantoprazole 40 MG Delayed-Release Granules 1 Packet PO SCH (16:57)
[2020-09-03] MEDS: Metoclopramide 10 MG/2 ML SDV IV SCH ×2 (02:38→08:42)
[2020-09-03] MEDS: Dextrose 5%-Lactated Ringers 1,000 ML IV SCH (02:38)
[2020-09-03] MEDS: Acetaminophen 325 MG Tab PO PRN (05:27)
[2020-09-03] MEDS: Albuterol/Ipratropium 3.0-0.5 MG/3 ML Neb Soln INH SCH ×4 (07:14→20:41)
[2020-09-03] MEDS: Levothyroxine 25 MCG Tab PO SCH (07:19)
[2020-09-03] MEDS ORDERED: Calcium Carbonate 500 MG Tab.Chew PO PRN (07:38)
[2020-09-03] MEDS: predniSONE 20 MG Tab PO SCH ×2 (08:41→13:27)
[2020-09-03] MEDS: Heparin Sodium 5,000 Units/ML Vial SUBCUT SCH ×2 (08:42→20:39)
[2020-09-03] MEDS: Estradiol 0.5 MG Tab PO SCH (08:48)
[2020-09-03] MEDS: Metoprolol Succinate 25 MG Tab.ER PO SCH (08:48)
[2020-09-03] MEDS: Bisacodyl 5 MG Tab PO SCH ×2 (08:48→20:41)
[2020-09-03] MEDS: SCOPOLAMINE PATCH CHECK TOP SCH (08:48)
[2020-09-03] MEDS: Scopolamine 1.5 MG Transdermal Patch TRDERM SCH (08:49)
[2020-09-03] MEDS: Magnesium Hydroxide 400 MG/5 ML Susp 30 ML Cup PO SCH ×2 (08:49→20:41)
[2020-09-03] MEDS: Fluticasone Propionate Nasal Spray 16 GM Bottle NAS SCH (08:49)
[2020-09-03] MEDS: Azelastine Nasal Soln 30 ML Spray Bottle NASBOTH SCH ×2 (08:49→20:41)
[2020-09-04 07:27] VITALS: BP 151/83; PULSE 76
[2020-09-04] MEDS: Albuterol/Ipratropium 3.0-0.5 MG/3 ML Neb Soln INH SCH (07:40)
[2020-09-04] MEDS: Levothyroxine 25 MCG Tab PO SCH (07:41)
[2020-09-04] MEDS: Magnesium Hydroxide 400 MG/5 ML Susp 30 ML Cup PO SCH (08:38)
--- NOTE | 2020-09-04 12:19 | PN ---
DATE OF SERVICE: 09/03/2020 SUBJECTIVE: Hortencia had oral intake of 460. She did take some Tylenol and Protonix with applesauce. She did have 130 emesis, but states it was real thick and phlegmy, and she felt better after that. She thinks something happened when she had the emesis. Now, she is able to drink a little bit. It does not hurt as much. She did feel like the Dilaudid and oxycodone caused more nausea, so she was switched to Ultram, and this did make a difference for her. She has not felt well enough and has declined to walk and has declined several of her medications including the prednisone and Protonix. REVIEW OF SYSTEMS: Remainder of review of systems negative for any pertinent positives and negatives. OBJECTIVE: GENERAL: Hortencia is a pleasant 50-year-old female. VITAL SIGNS: TPR; 96.2, 91, 18, and blood pressure 154/92. Oral intake for 460, 130 emesis. TYRA put out 5 mL of a serosanguineous drainage. Urine output independent. HEENT: Negative. NECK: Supple. HEART: Regular rate and rhythm. LUNGS: Clear. ABDOMEN: Aquacel dressing dry and intact. Abdominal binder is on. EXTREMITIES: Without peripheral edema. ASSESSMENT: Exploratory laparotomy with; 1. Esophageal gastrectomy with Kamila-en-Y esophageal jejunostomy. 2. Repair of recurrent paraesophageal hernia. POSTOPERATIVE DIAGNOSES: 1. Recurrent paraesophageal hernia with marked inflammation at the esophagogastric junction. 2. Date of procedure: 08/29/2020. Surgeon: Mann Mendez MD. PLAN: 1. I instructed the patient that the prednisone is still available if she chooses to take it. 2. To walk 6 times daily. 3. Med cups at bedside to drink one every 20 minutes and record. Protonix was changed to Tums to take 2 every 2 hours. 4. To try Powerade Zero, G2, sugar free popsicles, or Crystal Light in place of water to see if this goes down better. 5. Encouraged use of incentive spirometer. 6. We will evaluate p.r.n. or in the a.m. Maya Jiang PA-C /[id number]
--- NOTE | 2020-09-05 10:14 | DISCH ---
ADMISSION DIAGNOSES: 1. Gastroesophageal reflux disease refractory to medical management, status post Giovany. 2. 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 3. History of endometriosis. 4. Fatigue. 5. Fibromyalgia. 6. Graves disease. 7. General anxiety disorder. DISCHARGE DIAGNOSES: Exploratory laparotomy with; 1. Esophagogastrectomy with Kamila-en-Y esophagojejunostomy. 2. Repair of recurrent paraesophageal hernia. POSTOPERATIVE DIAGNOSES: 1. Recurrent paraesophageal hernia with marked inflammation at the esophagogastric junction. 2. Date of procedure: 08/29/2020. Surgeon: Mann Mendez MD. HISTORY: Hortencia is a 50-year-old female who had a laparoscopic Giovany fundoplication and continued to have problems with GERD and difficulty swallowing. After preoperative evaluation and discussion of possible risks and possible complications, she wished to proceed with surgical procedure. HOSPITAL COURSE: Hortencia had her surgery on 08/29/2020. She had no operative complications. On postoperative day #1, her upper GI looked okay. Her Barlow was discontinued. She was started on step 2 gastric bypass diet without cereal. On postoperative day #2, she was having difficulty swallowing. She was given Decadron IV once during the evening in this did help a little bit, so she was scheduled Decadron 2 mg IV q.12 hours and scopolamine patch was replaced and started on scheduled Reglan. She did develop a reaction with severe itching and facial swelling with the Decadron, so this was discontinued, and she was given bowel stimulation and changed to oral. Dilaudid [employer] was discontinued and bowel stimulation. On postoperative day #4, she was given oral prednisone, but declined to take it with fear of it causing a reaction much like the Decadron did. Tylenol was changed to pills. She later in the day was changed to tramadol and given an IV dose of Tylenol. She continued to work on sipping liquids, sitting up in the chair. On 09/03/2020, Hortencia states that she was able to drink 3 little med cups per hour, and she was able to get in 2034 oral liquids. Urine output was 1250 plus voiding. She did have 2 bowel movements. Pain was managed with Tylenol when she felt like she could swallow it. She has been up ambulating, has no other concerns or questions. Received dietary instruction and is ready to be discharged to home. PHYSICAL EXAMINATION: GENERAL: Hortencia Sanchez is a pleasant 50-year-old female. Height is 5 feet 7 inches. Weight is 208 pounds. BMI is 32. VITAL SIGNS: TPR; 96.5, 76, 18, and blood pressure 151/83. HEENT: Negative. NECK: Supple. HEART: Regular rate and rhythm. LUNGS: Clear. ABDOMEN: Aquacel dressing is on. She does have quite a bit of bruising in the top third of her incision. Abdominal binder is on. EXTREMITIES: Without peripheral edema. DISPOSITION: Discharged to home. CONDITION: Stable and improving. FOLLOWUP: Appointment with Maya Jiang PA-C, 09/08/2020 at 11:00 a.m. HOME MEDICATIONS: Zofran ODT 4 mg p.o. q.4 hours p.r.n., #30, for nausea and vomiting. She is to resume her home medication of metoprolol succinate 12.5 mg p.o. daily, estradiol 0.5 mg p.o. daily, simvastatin 10 mg p.o. daily, levothyroxine 25 mcg mg p.o. daily, Flonase nasal spray 2 sprays in each nostril daily, Voltaren topical q.i.d., Temovate ointment one applicator topical b.i.d., Astelin spray one spray in each nostril twice a day, albuterol inhaler 2 puffs p.o. q.4 hours p.r.n., and Tylenol 650 mg p.o. q.6 hours p.r.n. pain. DIET: Step 2 gastric bypass diet without cereal for 2 weeks until 09/13/2020 and to drink 8 to 10 glasses of water a day. Strive for a goal 65 g of protein in 64 ounces of liquid. ACTIVITY: No lifting more than 10 pounds for 6 weeks. Walk 6 times daily inside your home. Driving: Do not drive for 1 week. May shower. Wear abdominal binder for 6 weeks and then as tolerated. DISCHARGE INSTRUCTIONS: Notify provider if any fever, increased pain, swelling, redness, drainage, nausea, or vomiting. Special instruction: 1. Use incentive spirometer 10 times every hour while awake for 1 week. 2. Take off both the Aquacel dressing and scopolamine patch, the one behind your ear on 09/07/2020. 3. Write down everything you eat and drink and bring to clinic appointments. /[id number]
--- NOTE | 2020-09-06 16:38 | OR ---
DATE OF PROCEDURE: 08/29/2020 SURGEON: Mann Mendez MD PREOPERATIVE DIAGNOSIS: Recurrent paraesophageal hernia with active gastroesophageal reflux disease. POSTOPERATIVE DIAGNOSES: 1. Recurrent paraesophageal hernia with active gastroesophageal reflux disease. 2. Extensive scarring and inflammation at esophagogastric junction sustaining a distal esophagectomy as the proximal level resection. OPERATIVE PROCEDURES: Exploratory laparotomy with: 1. Esophagogastrectomy with Kamila-en-Y esophagojejunostomy (41752). 2. Repair of recurrent paraesophageal diaphragmatic hernia (92119). ANESTHESIA: General. MARKER HAND: Maya Jiang PA-C INDICATIONS FOR PROCEDURE: This is a 50-year-old female presenting with recurrent gastroesophageal reflux symptoms associated with recurrent paraesophageal diaphragmatic hernia. The plan is to proceed with open laparotomy with repair of this diaphragmatic hernia and resectional procedure to limit recurrent reflux symptoms over time. Potential risks of the procedure including bleeding, infection, injury to underlying viscera, problems with leaks from GI tract closures as well as possibility of cardiopulmonary, septic, or hemorrhagic complications leading to were all discussed and the patient wishes to proceed. DETAILS OF PROCEDURE: The patient was taken to the operating room and placed in a supine position. After general endotracheal anesthesia was induced, Barlow catheter was inserted and the abdomen prepped and draped. A midline incision from the xiphoid to just above the umbilicus was made and carried through the full-thickness abdominal wall. Upon entering the peritoneal cavity, some adhesions between the liver and the area of esophagogastric junction and previous Giovany fundoplication were taken down. The liver was retracted leftward and the patient was noted to have dense inflammation related to the fundoplication and fatty deposition in the area of the esophagogastric junction. This was eventually freed up from the diaphragmatic attachments. The fundoplication itself was still more or less over the distal-most esophagus. This was densely inflamed and it clearly would not be amenable to adequate level anastomosis. Given this, after Miguel tube had been placed and the distal esophagus well delineated, the Miguel tube had been pulled back and distal esophagus divided with ALLY black load. Some of the proximal stomach and distal most esophagus were then excised. This was done in somewhat piecemeal fashion due to the scarring in the area and that side of specimen was delivered from the field. The patient had a posteriorly based paraesophageal diaphragmatic hernia with prolapse of part of the gastric cardia posteriorly. This had been reduced as part of the bowel resection. The diaphragmatic hernia was then repaired with 0 Ethibond sutures reinforced with PTFE pledgets again with a posterior approach and the diaphragmatic hernia repaired. The small bowel was then prepared for the Kamila-en-Y anastomosis. The ligament of Treitz was identified and small bowel was then traced out 30 cm distal to that point and was divided transversely with a ALLY stapler. The small bowel was then traced out additional 125 cm where the [id number] enteroenterostomy was accomplished with internal firing of the Endo- ALLY 60 mm stapler. Common opening was closed transversely with the same stapler and the angles anastomosed and mesenteric defect approximated with some 3-0 Vicryl stitch. A ventral colic tunnel was then accomplished with a combination of cautery and blunt dissection within the transverse mesocolon. The Kamila limb that actually came up to the level of the esophagogastric junction was needed to be sized and including to some extent in order to get a tension-free anastomosis and this was eventually achieved. The anvil of a 28 mm EEA stapler had been placed through the opening of the stomach prior to the resection phase of the procedure and this was then brought out through the end of the divided esophagus. The main body of the 28 mm EEA stapler was then brought through an opening of distal divided Kamila limb and brought up to the anvil and united and thus creating the esophagojejunostomy upon removal of stapler. Double donuts of mucosa were noted within it. The mucosa at the proximal end of the stapler was confirmed to be esophageal in nature. The esophagojejunostomy was then reinforced with some 3-0 Vicryl seromuscular stitch on its anterior two-thirds of its circumference and then reinforced with fibrin sealant and irrigated with meropenem-containing saline solution. The point where the small bowel passed through the mesocolon was reinforced with 3-0 Vicryl seromuscular stitch, and at that point, no further problems noted. The Bryan-Almanzar drain was taken out through the stab wound in the left subcostal area positioning at the esophagojejunostomy, from there up into the splenic fossa. The midline fascia was then approximated with #2 Vicryl stitch, the skin and subcutaneous tissue with 3 and 4-0 Vicryl stitches and skin with shasha. Drains fixed to skin with 4-0 Vicryl stitch. The patient received bilateral transversus abdominis plane blocks prior to closure and was taken to the recovery room in satisfactory condition. Physician assistant purchasing manager, Maya Jiagn, played an essential role in assisting in this case helping to position the patient, retract structures as needed, as well as suturing and cutting sutures when indicated. Her presence improved patient safety and decreased operative time. Mann Mendez MD /[id number]
== END 2020-09-04 08:45 | disposition home or self-care (01) | DRG 220 ==
LOC: JP.SDSSCHI 07:53 → JP.SDS 07:53 → EDSTATUS 11:30 → JP.MS 12:50
PROVIDERS: ADMIT Surgery; ATTEND Surgery
PROC: 0D150ZA Bypass Esophagus to Jejunum, Open Approach (ICD-10-PCS; principal; 2020-08-29)
PROC: 0BQT0ZZ Repair Diaphragm, Open Approach (ICD-10-PCS; 2020-08-29)
PROC: 0DB30ZZ Excision of Lower Esophagus, Open Approach (ICD-10-PCS; 2020-08-29)
PROC: 0DB60ZZ Excision of Stomach, Open Approach (ICD-10-PCS; 2020-08-29)
DX: K21.9 Gastro-esophageal reflux disease without esophagitis (principal); M79.7 Fibromyalgia; E05.00 Thyrotoxicosis with diffuse goiter without thyrotoxic crisis or storm; F41.1 Generalized anxiety disorder; K44.9 Diaphragmatic hernia without obstruction or gangrene
CPT/HCPCS: 36415; 74240; 80053; 82728; 83735; 84100; 84443; 85027; 86850; 86900; 86901; 88305; 93005; 94640; 94762; A9270-GY; C9113; J0131; J0171; J0330; J0694; J1100; J1170; J1200; J1644; J2060; J2185; J2405; J2704; J2710; J2765; J2795; J3010; J3410; J3411; J3420; J3475; J3490; J7050; J7120; J7121; J7512; J7620-GY; Q9967

== ENCOUNTER 2020-09-29 08:33 | Day surgery (SDC) | payer MEDICARE, BC ==
[2020-09-29] MEDS ORDERED: Lactated Ringers 1,000 ML IV SCH (09:00)
[2020-09-29] MEDS ORDERED: Cyanocobalamin (Vitamin B12) 1,000 MCG/ML SDV IM ONE (09:15)
[2020-09-29] MEDS ORDERED: MVI, Adult with Vitamin K 10 ML, Thiamine 200 MG, Chromium/Copper/Mang/Selen/Zn 1 ML in... IV ONE ×4 (09:15)
[2020-09-29] MEDS ORDERED: Propofol 200 MG/20 ML SDV ONE (09:29)
[2020-09-29] MEDS ORDERED: fentaNYL 100 MCG/2 ML SDV ONE (09:30)
[2020-09-29] MEDS ORDERED: Midazolam 1 MG/ML 2 ML SDV ONE (09:30)
[2020-09-29] MEDS ORDERED: Glycopyrrolate 0.2 MG/ML 2 ML SDV IVPUSH ONE (09:30)
[2020-09-29] MEDS ORDERED: Dexamethasone 4 MG/ML SDV ONE (10:02)
[2020-09-29] MEDS ORDERED: Ondansetron 4 MG/2 ML SDV ONE (10:02)
[2020-09-29 13:21] VITALS: BP 139/81; PULSE 58
--- NOTE | 2020-10-05 16:51 | OR ---
DATE OF PROCEDURE: 09/29/2020 SURGEON: Mann Mendez MD PREOPERATIVE DIAGNOSIS: Probable stricture at gastrojejunostomy. POSTOPERATIVE DIAGNOSIS: Moderate stricture at gastrojejunostomy. PROCEUDRE PERFORMED: Upper gastrointestinal endoscopy with dilation of gastrojejunostomy ([id number]). ANESTHESIA: IV sedation. INDICATION FOR PROCEDURE: The patient is status post esophagogastrectomy, presenting with some symptoms of stricturing at her gastrojejunal anastomosis. The plan is to proceed with upper endoscopy with dilation as indicated. Potential risks of the procedure including bleeding and perforation were discussed, and the patient wishes to proceed. DETAILS OF PROCEDURE: The patient was taken to the operating room and placed in a left lateral decubitus position. IV sedation was administered after which the upper GI endoscope was passed down to the level of the jejunal anastomosis. The patient did have a small cuff of gastric mucosa over part of the anastomosis. There was a moderate stricture present. Bard gastrointestinal catheter was centered across the anastomosis and inflated to 36-Danish size and held in position for 1 minute after which the balloon catheter was deflated and withdrawn. The scope was easily then passed through the anastomosis. No complications were noted, and the patient was taken to the recovery room in satisfactory condition. Mann Mendez MD /[id number]
== END 2020-09-29 13:00 | disposition home or self-care (01) ==
LOC: JP.SDS 08:33
PROVIDERS: ATTEND Surgery
DX: K22.2 Esophageal obstruction (principal); Z88.2 Allergy status to sulfonamides; Z88.1 Allergy status to other antibiotic agents; Z98.890 Other specified postprocedural states
CPT/HCPCS: 43249; J2250; J2704; J3010; J3411; J3420; J3490; J7120; J1100; J2405

== ENCOUNTER 2020-10-25 06:23 | Day surgery (SDC) | payer MEDICARE, BC ==
[2020-10-25] MEDS ORDERED: fentaNYL 100 MCG/2 ML SDV ONE (06:56)
[2020-10-25] MEDS ORDERED: Midazolam 1 MG/ML 2 ML SDV ONE (06:56)
[2020-10-25] MEDS ORDERED: Propofol 200 MG/20 ML SDV ONE (06:56)
[2020-10-25] MEDS ORDERED: Cyanocobalamin (Vitamin B12) 1,000 MCG/ML SDV IM ONE (07:00)
[2020-10-25] MEDS ORDERED: Glycopyrrolate 0.2 MG/ML 2 ML SDV IVPUSH ONE (07:00)
[2020-10-25] MEDS ORDERED: Lactated Ringers 1,000 ML IV ONE (07:00)
[2020-10-25] MEDS ORDERED: MVI, Adult with Vitamin K 10 ML, Thiamine 200 MG, Zinc/Copper/Manganese/Selenium 1 ML i... IV ONE ×4 (08:00)
[2020-10-25 10:24] VITALS: BP 163/89; PULSE 58
[2020-10-25] MEDS ORDERED: Hyoscyamine 0.125 MG Tab.SL SL ONE (10:44)
--- NOTE | 2020-11-02 13:45 | OR ---
DATE OF PROCEDURE: 10/25/2020 SURGEON: Mann Mendez MD PREOPERATIVE DIAGNOSIS: Possible stricture at esophagojejunostomy. POSTOPERATIVE DIAGNOSIS: Mild stricture at esophagojejunostomy. PROCEDURE PERFORMED: Upper gastrointestinal endoscopy with dilation of esophagojejunostomy. ANESTHESIA: IV sedation. INDICATIONS FOR PROCEDURE: This is a 50-year-old female status post esophagogastrectomy who presents now with some symptoms suggestive of recurrent stricturing. The plan is to proceed with an upper GI endoscopy with dilation as indicated. Potential risks including bleeding and perforation were discussed, and the patient wishes to proceed. DETAILS OF PROCEDURE: The patient was taken to the operating room and placed in a left lateral decubitus position. IV sedation was administered after which the upper GI endoscope was passed orally through the length of the esophagus and through the esophagojejunostomy, and from there, roughly 20 cm into the Kamila limb. There was only mild stricturing with the scope being able to be passed gently through that area. There was relatively little mucosal inflammation, the patient does have a small cuff of gastric mucosa as part of the anastomosis. The Bard gastrointestinal balloon catheter was then centered across the anastomosis, inflated to 45-Divehi size, and held in position for one minute after which the balloon catheter was deflated and withdrawn. The scope was easily passed through the anastomosis. No complications were noted, and the procedure was concluded. The patient was taken to the recovery room in satisfactory condition. Mann Mendez MD /[id number]
== END 2020-10-25 11:10 | disposition home or self-care (01) ==
LOC: JP.SDS 06:23
PROVIDERS: ATTEND Surgery
DX: K91.89 Other postprocedural complications and disorders of digestive system (principal); K22.2 Esophageal obstruction; E03.9 Hypothyroidism, unspecified; E66.9 Obesity, unspecified
CPT/HCPCS: 43249; A9270; J2250; J2704; J3010; J3411; J3420; J3490; J7120

== ENCOUNTER 2021-06-09 07:43 | Day surgery (SDC) | payer MEDICARE ==
[2021-06-09] MEDS ORDERED: Glycopyrrolate 0.2 MG/ML 2 ML SDV IVPUSH ONE (08:30)
[2021-06-09] MEDS ORDERED: Dextrose 5%-Lactated Ringers 1,000 ML IV SCH (08:30)
[2021-06-09] MEDS ORDERED: Propofol 200 MG/20 ML SDV ONE (10:22)
[2021-06-09] MEDS ORDERED: Midazolam 1 MG/ML 2 ML SDV ONE (10:22)
[2021-06-09] MEDS ORDERED: fentaNYL 100 MCG/2 ML SDV ONE (10:22)
[2021-06-09 12:18] VITALS: BP 122/93; PULSE 57
== END 2021-06-09 11:45 | disposition home or self-care (01) ==
LOC: JP.SDS 07:43
PROVIDERS: ATTEND Surgery
DX: K91.89 Other postprocedural complications and disorders of digestive system (principal); R13.10 Dysphagia, unspecified; K22.89 Other specified disease of esophagus; K21.9 Gastro-esophageal reflux disease without esophagitis; J45.909 Unspecified asthma, uncomplicated; E66.9 Obesity, unspecified; Z98.890 Other specified postprocedural states; Z68.25 Body mass index [BMI] 25.0-25.9, adult
CPT/HCPCS: 43235; J2250; J2704; J3010; J3490; J7121

== ENCOUNTER 2022-08-16 05:58 | Day surgery (SDC) | payer MEDICARE ==
[2022-08-16] MEDS ORDERED: Lactated Ringers 1,000 ML IV SCH (07:00)
[2022-08-16] MEDS ORDERED: Midazolam 1 MG/ML 2 ML SDV ONE (07:09)
[2022-08-16] MEDS ORDERED: Propofol 200 MG/20 ML SDV ONE (07:09)
[2022-08-16] MEDS ORDERED: fentaNYL 50 MCG/ML SDV ONE (07:09)
[2022-08-16] MEDS ORDERED: Glycopyrrolate 0.2 MG/ML 2 ML SDV IVPUSH ONE (07:30)
[2022-08-16] MEDS ORDERED: MVI, Adult with Vitamin K 10 ML, Thiamine 200 MG, Zinc/Copper/Manganese/Selenium 1 ML i... IV ONE ×4 (08:00)
[2022-08-16] MEDS ORDERED: Cyanocobalamin (Vitamin B12) 1,000 MCG/ML SDV IM ONE (09:00)
[2022-08-16 11:02] VITALS: BP 135/70; PULSE 56
== END 2022-08-16 10:30 | disposition home or self-care (01) ==
LOC: JP.SDS 05:58
PROVIDERS: ATTEND Surgery
DX: R10.13 Epigastric pain (principal); I71.40 Abdominal aortic aneurysm, without rupture, unspecified; E78.5 Hyperlipidemia, unspecified; F32.A Depression, unspecified; E66.9 Obesity, unspecified; Z98.84 Bariatric surgery status; Z68.23 Body mass index [BMI] 23.0-23.9, adult
CPT/HCPCS: 43235; J2250; J2704; J3010; J3411; J3420; J3490; J7120

== ENCOUNTER 2022-08-28 08:50 | Inpatient (IN) | payer MEDICARE ==
[~2022-08-28 08:50] MED LIST changes: +Bupivacaine 0.5% 50 ML MDV ONE; +Dexamethasone 4 MG/ML SDV ONE; +Glycopyrrolate 0.2 MG/ML 5 ML MDV ONE; +Lidocaine 1% with EPINEPHrine 1:100,000 50 ML MDV ONE; +Meropenem 500 MG SDV ONE; +Neostigmine Methylsulfate 1 MG/ML 5 ML Syringe ONE; +Ondansetron 4 MG/2 ML SDV ONE; +Propofol 200 MG/20 ML SDV ONE; +Rocuronium 50 MG/5 ML Vial ONE; +Succinylcholine 200 MG/10 ML MDV ONE; -cefOXitin 2 GM Vial ONE; +fentaNYL 250 MCG/5 ML SDV ONE
[2022-08-28] MEDS ORDERED: Scopolamine 1.5 MG Transdermal Patch TOP SCH (09:15)
[2022-08-28] MEDS ORDERED: Dextrose 5%-Lactated Ringers 1,000 ML IV SCH (09:30)
[2022-08-28] MEDS ORDERED: cefOXitin 2 GM in Sodium Chloride 0.9% 50 ML IV ONE (09:30)
[2022-08-28] MEDS ORDERED: Albuterol/Ipratropium 3.0-0.5 MG/3 ML Neb Soln NEB ONE (10:00)
[2022-08-28 10:12] LABS: MAGNESIUM 1.8 mg/dL (1.8-2.4); PHOSPHORUS 7.3 mg/dL (2.5-4.9); TSH ULTRASENSITIVE 2.379 uIU/mL (0.358-3.740)
[2022-08-28] MEDS ORDERED: Ketamine 18 MG in Sodium Chloride 0.9% 19.82 ML IV SCH (10:30)
[2022-08-28] MEDS ORDERED: Ketamine 500 MG/5 ML MDV IV SCH (10:30)
[2022-08-28] MEDS ORDERED: Ropivacaine 34 ML, dexAMETHasone 8 MG, EPINEPHrine 0.4 MG, Sodium Chloride 0.9% 43.6 ML NERVRT SCH ×4 (10:45)
[2022-08-28] MEDS ORDERED: fentaNYL 250 MCG/5 ML SDV ONE (11:32)
[2022-08-28] MEDS ORDERED: Ondansetron 4 MG/2 ML SDV IVPUSH PRN ×2 (12:04→14:00)
[2022-08-28] MEDS ORDERED: Naloxone 0.4 MG/ML SDV IVPUSH PRN (12:04)
[2022-08-28] MEDS ORDERED: diphenhydrAMINE 50 MG/ML SDV IVPUSH PRN ×2 (12:04→14:00)
[2022-08-28] MEDS ORDERED: diphenhydrAMINE 25 MG Cap PO PRN (12:04)
[2022-08-28] MEDS ORDERED: hydrOXYzine HCl 50 MG/ML SDV IM ONE (12:20)
[2022-08-28] MEDS: fentaNYL/Normal Saline 600 MCG/30 ML PCA Vial IV SCH (12:39)
[2022-08-28] MEDS ORDERED: Naloxone 0.4 MG/ML SDV IV PRN (13:00)
[2022-08-28] MEDS ORDERED: Acetaminophen 500 MG Tab PO PRN (14:00)
[2022-08-28] MEDS ORDERED: Labetalol 20 MG/4 ML Syringe IVPUSH PRN (14:00)
[2022-08-28] MEDS ORDERED: Pantoprazole 40 MG Vial IVPUSH SCH (14:00)
[2022-08-28] MEDS ORDERED: Albuterol/Ipratropium 3.0-0.5 MG/3 ML Neb Soln INH PRN (14:00)
[2022-08-28] MEDS ORDERED: Metoclopramide 10 MG/2 ML SDV IVPUSH PRN (14:00)
[2022-08-28] MEDS ORDERED: hydrOXYzine HCl 50 MG/ML SDV IM PRN (14:00)
[2022-08-28] MEDS ORDERED: Azelastine Nasal Soln 30 ML Spray Bottle NASBOTH PRN (14:13)
[2022-08-28] MEDS: Albuterol/Ipratropium 3.0-0.5 MG/3 ML Neb Soln INH SCH ×2 (14:59→21:32)
[2022-08-28] MEDS: MVI, Adult with Vitamin K 10 ML, Thiamine 200 MG, Zinc/Copper/Manganese/Selenium 1 ML i... IV SCH ×4 (15:57)
[2022-08-28] MEDS: cefOXitin 2 GM in Sodium Chloride 0.9% 50 ML IV SCH ×2 (15:57→21:38)
[2022-08-28] MEDS: Acetaminophen 500 MG Tab PO SCH (20:15)
[2022-08-28] MEDS: Heparin Sodium 5,000 Units/ML Vial SUBCUT SCH (20:16)
[2022-08-28] MEDS: Cyclobenzaprine 10 MG Tab PO PRN (21:37)
[2022-08-28] MEDS: Topiramate 25 MG Tab PO SCH (21:37)
[2022-08-28] MEDS: Dextrose 5%-Lactated Ringers 1,000 ML IV SCH (21:55)
[2022-08-29] MEDS ORDERED: Iopamidol 612 MG/ML 30 ML SDV PO STA (02:33)
[2022-08-29] MEDS: Acetaminophen 500 MG Tab PO SCH ×3 (04:37→19:46)
[2022-08-29] MEDS: cefOXitin 2 GM in Sodium Chloride 0.9% 50 ML IV SCH ×5 (04:38→21:42)
[2022-08-29] MEDS: Dextrose 5%-Lactated Ringers 1,000 ML IV SCH ×2 (04:45→09:15)
[2022-08-29] MEDS: Albuterol/Ipratropium 3.0-0.5 MG/3 ML Neb Soln INH SCH ×4 (07:11→21:29)
[2022-08-29] MEDS: Heparin Sodium 5,000 Units/ML Vial SUBCUT SCH ×2 (07:39→19:40)
[2022-08-29] MEDS: Levothyroxine 25 MCG Tab PO SCH (07:40)
[2022-08-29] MEDS ORDERED: Ondansetron 4 MG Tab.DIS PO PRN (08:01)
[2022-08-29] MEDS: Aspirin 81 MG Tab.EC PO SCH (09:10)
[2022-08-29] MEDS: Estradiol 0.5 MG Tab PO SCH (09:10)
[2022-08-29] MEDS: Celecoxib 200 MG Cap PO SCH ×2 (09:11→21:36)
[2022-08-29] MEDS: SCOPOLAMINE PATCH CHECK TOP SCH (09:11)
[2022-08-29] MEDS: Pantoprazole 40 MG Tab.CR PO SCH (12:44)
[2022-08-29] MEDS: fentaNYL/Normal Saline 600 MCG/30 ML PCA Vial IV SCH (13:18)
[2022-08-29] MEDS: MVI, Adult with Vitamin K 10 ML, Thiamine 200 MG, Zinc/Copper/Manganese/Selenium 1 ML i... IV SCH ×8 (14:12→16:29)
[2022-08-29] MEDS: Cyclobenzaprine 10 MG Tab PO PRN (14:15)
[2022-08-29] MEDS: Metoprolol Tartrate 25 MG Tab PO SCH (21:36)
[2022-08-29] MEDS: Topiramate 25 MG Tab PO SCH (21:36)
[2022-08-30] MEDS: Dextrose 5%-Lactated Ringers 1,000 ML IV SCH ×2 (01:35→09:42)
[2022-08-30] MEDS: Acetaminophen 500 MG Tab PO SCH ×3 (03:25→19:26)
[2022-08-30] MEDS: cefOXitin 2 GM in Sodium Chloride 0.9% 50 ML IV SCH (03:26)
[2022-08-30 04:42] LABS: HEMATOCRIT 30.5 % (34.3-46.0); HEMOGLOBIN 9.9 g/dL (11.2-15.5); MEAN CORPUSCULAR HEMOGLOBIN 31.2 pg (31.6-35.5); MEAN CORPUSCULAR HGB CONC 32.5 g/dL (31.6-35.5); MEAN CORPUSCULAR VOLUME 96.2 fL (81.4-99.0); RED BLOOD CELL COUNT 3.17 M/uL (3.77-5.24); WHITE BLOOD CELL COUNT,WBC 5.9 K/uL (3.2-11.0)
[2022-08-30 05:04] LABS: ALANINE AMINOTRANSFERASE,ALT 26 U/L (12-78); ALBUMIN 2.6 g/dL (3.4-5.0); ALKALINE PHOSPHATASE 48 U/L (46-116); ASPARTATE AMNIOTRANSFERASE,AST 16 U/L (15-37); BILIRUBIN TOTAL 0.8 mg/dL (0.2-1.0); BLOOD UREA NITROGEN,BUN 7 mg/dL (7-18); CALCIUM 8.2 mg/dL (8.5-10.1); CARBON DIOXIDE,CO2 31 mmol/L (21-32); CHLORIDE,CL 106 mmol/L (100-108); CREATININE 1.1 mg/dL (0.6-1.0); EST CRCL DRUG DOSING (CG) 56.85 mL/min; ESTIMATED GFR 60 mL/min (>60); GLUCOSE RANDOM 91 mg/dL (74-106); MAGNESIUM 1.6 mg/dL (1.8-2.4); PHOSPHORUS 3.4 mg/dL (2.5-4.9); POTASSIUM,K 3.7 mmol/L (3.6-5.2); PROTEIN TOTAL,TP 5.1 g/dL (6.4-8.2); SODIUM,NA 141 mmol/L (140-148)
[2022-08-30] MEDS ORDERED: Meropenem 500 MG SDV ONE (06:48)
[2022-08-30] MEDS ORDERED: fentaNYL 50 MCG/ML SDV ONE (06:49)
[2022-08-30] MEDS ORDERED: Lidocaine 1% with EPINEPHrine 1:100,000 50 ML MDV ONE (06:49)
[2022-08-30] MEDS ORDERED: Propofol 200 MG/20 ML SDV ONE (06:49)
[2022-08-30] MEDS ORDERED: Bupivacaine 0.5% 50 ML MDV ONE (06:49)
[2022-08-30] MEDS: Albuterol/Ipratropium 3.0-0.5 MG/3 ML Neb Soln INH SCH ×4 (07:07→20:26)
[2022-08-30] MEDS ORDERED: Ropivacaine 34 ML, dexAMETHasone 8 MG, EPINEPHrine 0.4 MG, Sodium Chloride 0.9% 43.6 ML NERVRT SCH ×4 (07:15)
[2022-08-30] MEDS: Levothyroxine 25 MCG Tab PO SCH (08:36)
[2022-08-30] MEDS: Heparin Sodium 5,000 Units/ML Vial SUBCUT SCH ×2 (08:36→19:27)
[2022-08-30] MEDS: Celecoxib 200 MG Cap PO SCH ×2 (08:37→20:29)
[2022-08-30] MEDS: Aspirin 81 MG Tab.EC PO SCH (08:37)
[2022-08-30] MEDS: Estradiol 0.5 MG Tab PO SCH (08:37)
[2022-08-30] MEDS: SCOPOLAMINE PATCH CHECK TOP SCH (08:38)
[2022-08-30] MEDS: Metoprolol Tartrate 25 MG Tab PO SCH ×2 (08:39→20:27)
[2022-08-30] MEDS ORDERED: Cyanocobalamin (Vitamin B12) 1,000 MCG/ML SDV IM ONE (09:00)
[2022-08-30] MEDS: Bisacodyl 5 MG Tab PO SCH ×2 (09:40→20:26)
[2022-08-30] MEDS: Docusate Sodium 100 MG Cap PO SCH ×2 (09:40→20:26)
[2022-08-30] MEDS ORDERED: Magnesium Sulfate/Water 2 GM/50 ML BAG IV SCH (10:00)
[2022-08-30] MEDS: Pantoprazole 40 MG Tab.CR PO SCH (11:55)
[2022-08-30] MEDS: traMADol 50 MG Tab PO PRN ×2 (15:17→20:25)
[2022-08-30] MEDS: Topiramate 25 MG Tab PO SCH (20:29)
[2022-08-31] MEDS: traMADol 50 MG Tab PO PRN ×2 (00:27→04:33)
[2022-08-31] MEDS: Acetaminophen 500 MG Tab PO SCH (04:33)
[2022-08-31] MEDS: Albuterol/Ipratropium 3.0-0.5 MG/3 ML Neb Soln INH SCH (06:59)
[2022-08-31] MEDS: Heparin Sodium 5,000 Units/ML Vial SUBCUT SCH (07:15)
[2022-08-31] MEDS: Levothyroxine 25 MCG Tab PO SCH (07:15)
[2022-08-31] MEDS: Metoprolol Tartrate 25 MG Tab PO SCH (08:32)
[2022-08-31] MEDS: Docusate Sodium 100 MG Cap PO SCH (08:32)
[2022-08-31] MEDS: Bisacodyl 5 MG Tab PO SCH (08:32)
[2022-08-31] MEDS: Aspirin 81 MG Tab.EC PO SCH (08:33)
[2022-08-31] MEDS: Celecoxib 200 MG Cap PO SCH (08:33)
[2022-08-31] MEDS: Estradiol 0.5 MG Tab PO SCH (08:33)
[2022-08-31 09:50] VITALS: BP 148/88; PULSE 62
== END 2022-08-31 09:50 | disposition home or self-care (01) | DRG 329 ==
LOC: JP.SDS 08:50 → JP.MS 12:20
PROVIDERS: ADMIT Surgery; ATTEND Surgery
PROC: 0DB80ZZ Excision of Small Intestine, Open Approach (ICD-10-PCS; principal; 2022-08-28)
PROC: 0DB80ZZ Excision of Small Intestine, Open Approach (ICD-10-PCS; 2022-08-28)
PROC: 3E0M05Z Introduction of Adhesion Barrier into Peritoneal Cavity, Open Approach (ICD-10-PCS; 2022-08-28)
PROC: 0WQF0ZZ Repair Abdominal Wall, Open Approach (ICD-10-PCS; 2022-08-30)
DX: K95.89 Other complications of other bariatric procedure (principal); K56.2 Volvulus; E78.00 Pure hypercholesterolemia, unspecified; E66.9 Obesity, unspecified; E78.5 Hyperlipidemia, unspecified; E05.90 Thyrotoxicosis, unspecified without thyrotoxic crisis or storm; Z88.1 Allergy status to other antibiotic agents; Z88.2 Allergy status to sulfonamides; Z88.8 Allergy status to other drugs, medicaments and biological substances; Z79.890 Hormone replacement therapy; J45.20 Mild intermittent asthma, uncomplicated; Z68.24 Body mass index [BMI] 24.0-24.9, adult; F41.1 Generalized anxiety disorder; F33.0 Major depressive disorder, recurrent, mild; M79.7 Fibromyalgia; Z79.899 Other long term (current) drug therapy
CPT/HCPCS: 36415; 82728; 82947; 83735; 84100; 84443; 88307; 94640 ×2; A9270; J0131; J0171; J0330; J0694; J1100; J2185; J2405; J2704; J2710; J2795; J3010 ×2; J3490 ×5; J7121; 74240; 74240-26; 80053; 85027; C9113; J1644; J2020; J3410; J3411; J3420; J3475; J7620; Q9967

== ENCOUNTER 2022-10-02 15:00 | Inpatient (IN) | payer MEDICARE ==
[2022-10-02] MEDS ORDERED: Acetaminophen 650 MG Supp RECTAL PRN (15:49)
[2022-10-02] MEDS ORDERED: Ondansetron 4 MG/2 ML SDV IVPUSH PRN (15:50)
[2022-10-02] MEDS ORDERED: Naloxone 0.4 MG/ML SDV IV PRN (17:00)
[2022-10-02] MEDS: fentaNYL/Normal Saline 600 MCG/30 ML PCA Vial IV PRN (17:14)
[2022-10-02] MEDS: Pantoprazole 40 MG Vial IV SCH (17:25)
[2022-10-02] MEDS: Linezolid 600 MG in Premix Bag 1 BAG IV SCH (17:26)
[2022-10-02] MEDS: Meropenem 500 MG in Sodium Chloride 0.9% 50 ML IV SCH (18:39)
[2022-10-02] MEDS: Acetaminophen 325 MG Tab PO PRN (22:12)
[2022-10-03] MEDS: Meropenem 500 MG in Sodium Chloride 0.9% 50 ML IV SCH ×4 (00:09→18:01)
[2022-10-03] MEDS: Linezolid 600 MG in Premix Bag 1 BAG IV SCH ×3 (04:43→16:49)
[2022-10-03 06:58] LABS: A/G RATIO 0.8 (1.2-2.2); ALANINE AMINOTRANSFERASE,ALT 25 U/L (12-78); ALBUMIN 2.4 g/dL (3.4-5.0); ALKALINE PHOSPHATASE 56 U/L (46-116); ASPARTATE AMNIOTRANSFERASE,AST 12 U/L (15-37); BILIRUBIN TOTAL 1.7 mg/dL (0.2-1.0); BLOOD UREA NITROGEN,BUN 6 mg/dL (7-18); CALCIUM 8.2 mg/dL (8.5-10.1); CARBON DIOXIDE,CO2 28 mmol/L (21-32); CHLORIDE,CL 102 mmol/L (100-108); CREATININE 0.6 mg/dL (0.6-1.0); EST CRCL DRUG DOSING (CG) 104.23 mL/min; ESTIMATED GFR 107 mL/min (>60); GLUCOSE RANDOM 137 mg/dL (74-106); MAGNESIUM 1.7 mg/dL (1.8-2.4); POTASSIUM,K 3.5 mmol/L (3.6-5.2); PROTEIN TOTAL,TP 5.6 g/dL (6.4-8.2); SODIUM,NA 137 mmol/L (140-148)
[2022-10-03 07:00] LABS: HEMOGLOBIN 10.8 g/dL (11.2-15.5); MEAN CORPUSCULAR HEMOGLOBIN 31.7 pg (31.6-35.5); MEAN CORPUSCULAR HGB CONC 33.8 g/dL (31.6-35.5); MEAN CORPUSCULAR VOLUME 93.8 fL (81.4-99.0); PLATELET COUNT,PLT 162 K/uL (130-375); RED BLOOD CELL COUNT 3.41 M/uL (3.77-5.24); WHITE BLOOD CELL COUNT,WBC 5.4 K/uL (3.2-11.0)
[2022-10-03 07:30] LABS: BAND ABSOLUTE MAN 0.05 K/uL; BAND PERCENT MAN 1 % (5-11); EOSINOPHILS ABSOLUTE MAN 0.22 K/uL (0.00-0.40); EOSINOPHILS PERCENT MAN 4 % (2-4); LYMPHOCYTES PERCENT MAN 26 % (24-44); MONOCYTES ABSOLUTE MAN 0.32 K/uL (0.20-0.90); MONOCYTES PERCENT MAN 6 % (2-6); SEG NEUTROPHILS PERCENT MAN 63 % (36-66)
[2022-10-03 07:54] LABS: ANION GAP 10.5 mmol/L (5.0-14.0)
[2022-10-03] MEDS: Dextrose 5%-Lactated Ringers 1,000 ML IV SCH ×2 (08:59→22:13)
[2022-10-03] MEDS: Potassium Phosphates 15 MMOLE in Sodium Chloride 0.9% 250 ML IV SCH ×3 (10:05→16:49)
[2022-10-03] MEDS: Magnesium Sulfate/Water 2 GM/50 ML BAG IV SCH ×2 (13:46→20:49)
[2022-10-03] MEDS: Pantoprazole 40 MG Vial IV SCH (16:49)
[2022-10-03] MEDS: Acetaminophen 325 MG Tab PO PRN (17:06)
[2022-10-04] MEDS: Meropenem 500 MG in Sodium Chloride 0.9% 50 ML IV SCH ×4 (00:16→17:43)
[2022-10-04] MEDS: fentaNYL/Normal Saline 600 MCG/30 ML PCA Vial IV PRN (01:09)
[2022-10-04] MEDS: Magnesium Sulfate/Water 2 GM/50 ML BAG IV SCH ×4 (01:11→20:53)
[2022-10-04] MEDS ORDERED: Iopamidol 612 MG/ML 100 ML Bottle IV STA (04:01)
[2022-10-04] MEDS ORDERED: Iopamidol 612 MG/ML 30 ML SDV PO STA (04:01)
[2022-10-04] MEDS ORDERED: Sodium Chloride 0.9% 10 ML Syringe FLUSH STA (04:02)
[2022-10-04] MEDS ORDERED: Sodium Chloride 0.9% 50 ML IV STA (04:02)
[2022-10-04] MEDS: Linezolid 600 MG in Premix Bag 1 BAG IV SCH ×2 (04:52→17:10)
[2022-10-04 05:11] LABS: HEMATOCRIT 30.2 % (34.3-46.0); HEMOGLOBIN 10.1 g/dL (11.2-15.5); MEAN CORPUSCULAR HEMOGLOBIN 31.2 pg (31.6-35.5); MEAN CORPUSCULAR HGB CONC 33.4 g/dL (31.6-35.5); MEAN CORPUSCULAR VOLUME 93.2 fL (81.4-99.0); RED BLOOD CELL COUNT 3.24 M/uL (3.77-5.24); WHITE BLOOD CELL COUNT,WBC 5.4 K/uL (3.2-11.0)
[2022-10-04 05:33] LABS: ALBUMIN 2.3 g/dL (3.4-5.0); BLOOD UREA NITROGEN,BUN 3 mg/dL (7-18); CALCIUM 7.8 mg/dL (8.5-10.1); CARBON DIOXIDE,CO2 29 mmol/L (21-32); CHLORIDE,CL 100 mmol/L (100-108); CREATININE 0.5 mg/dL (0.6-1.0); EST CRCL DRUG DOSING (CG) 125.08 mL/min; ESTIMATED GFR 111 mL/min (>60); GLUCOSE RANDOM 130 mg/dL (74-106); POTASSIUM,K 3.7 mmol/L (3.6-5.2); PROTEIN TOTAL,TP 5.6 g/dL (6.4-8.2); SODIUM,NA 133 mmol/L (140-148)
[2022-10-04 05:34] LABS: A/G RATIO 0.7 (1.2-2.2); ALANINE AMINOTRANSFERASE,ALT 25 U/L (12-78); ALKALINE PHOSPHATASE 63 U/L (46-116); ASPARTATE AMNIOTRANSFERASE,AST 17 U/L (15-37); BILIRUBIN TOTAL 1.2 mg/dL (0.2-1.0); PHOSPHORUS 3.1 mg/dL (2.5-4.9)
[2022-10-04 05:39] LABS: ANION GAP 7.7 mmol/L (5.0-14.0)
[2022-10-04] MEDS: Dextrose 5%-Lactated Ringers 1,000 ML IV SCH (07:36)
[2022-10-04] MEDS ORDERED: Ketamine 500 MG/5 ML MDV IV SCH ×3 (07:45→10:00)
[2022-10-04] MEDS: Metoprolol Tartrate 25 MG Tab PO SCH ×2 (09:04→20:53)
[2022-10-04] MEDS ORDERED: Ketamine 18 MG in Sodium Chloride 0.9% 19.82 ML IV SCH (10:00)
[2022-10-04] MEDS ORDERED: Ropivacaine 34 ML, dexAMETHasone 8 MG, EPINEPHrine 0.4 MG, Sodium Chloride 0.9% 43.6 ML NERVRT SCH ×4 (10:00)
[2022-10-04] MEDS ORDERED: Glycopyrrolate 0.2 MG/ML 5 ML MDV ONE (10:43)
[2022-10-04] MEDS ORDERED: Propofol 200 MG/20 ML SDV ONE (10:43)
[2022-10-04] MEDS ORDERED: Neostigmine Methylsulfate 1 MG/ML 5 ML Syringe ONE (10:43)
[2022-10-04] MEDS ORDERED: Rocuronium 50 MG/5 ML Vial ONE (10:43)
[2022-10-04] MEDS ORDERED: Ondansetron 4 MG/2 ML SDV ONE (10:43)
[2022-10-04] MEDS ORDERED: Dexamethasone 4 MG/ML SDV ONE (10:43)
[2022-10-04] MEDS ORDERED: Succinylcholine 200 MG/10 ML MDV ONE (10:43)
[2022-10-04] MEDS ORDERED: fentaNYL 250 MCG/5 ML SDV ONE ×2 (10:43→13:29)
[2022-10-04] MEDS ORDERED: Meropenem 500 MG SDV ONE (12:19)
[2022-10-04] MEDS ORDERED: Bupivacaine 0.5% 50 ML MDV ONE (12:19)
[2022-10-04] MEDS ORDERED: Lidocaine 1% with EPINEPHrine 1:100,000 50 ML MDV ONE (12:20)
[2022-10-04] MEDS ORDERED: Dextrose 5%-Lactated Ringers 1,000 ML IV SCH (15:45)
[2022-10-04] MEDS: Cyclobenzaprine 10 MG Tab PO PRN (15:54)
[2022-10-04] MEDS ORDERED: Labetalol 20 MG/4 ML Syringe IVPUSH PRN (16:00)
[2022-10-04] MEDS ORDERED: Scopolamine 1.5 MG Transdermal Patch TOP SCH (16:00)
[2022-10-04] MEDS ORDERED: Metoclopramide 10 MG/2 ML SDV IVPUSH PRN (16:00)
[2022-10-04] MEDS ORDERED: diphenhydrAMINE 50 MG/ML SDV IVPUSH PRN (16:00)
[2022-10-04] MEDS: hydrOXYzine HCl 50 MG/ML SDV IM PRN ×2 (16:03→21:02)
[2022-10-04] MEDS: Pantoprazole 40 MG Vial IV SCH (17:11)
[2022-10-04] MEDS: MVI, Adult with Vitamin K 10 ML, Thiamine 200 MG, Zinc/Copper/Manganese/Selenium 1 ML i... IV SCH ×4 (17:42)
[2022-10-04] MEDS: SCOPOLAMINE PATCH CHECK TOP SCH (19:11)
[2022-10-04] MEDS ORDERED: Acetaminophen 500 MG Tab PO PRN (20:00)
[2022-10-04] MEDS: Heparin Sodium 5,000 Units/ML Vial SUBCUT SCH (20:53)
[2022-10-04] MEDS: Acetaminophen 500 MG Tab PO SCH (21:03)
[2022-10-05] MEDS: Meropenem 500 MG in Sodium Chloride 0.9% 50 ML IV SCH ×5 (00:39→23:16)
[2022-10-05] MEDS: Magnesium Sulfate/Water 2 GM/50 ML BAG IV SCH ×2 (01:27→08:17)
[2022-10-05] MEDS ORDERED: Iopamidol 612 MG/ML 30 ML SDV PO STA (03:56)
[2022-10-05 04:39] LABS: HEMATOCRIT 32.6 % (34.3-46.0); HEMOGLOBIN 11.3 g/dL (11.2-15.5); MEAN CORPUSCULAR HEMOGLOBIN 31.7 pg (31.6-35.5); MEAN CORPUSCULAR HGB CONC 34.7 g/dL (31.6-35.5); MEAN CORPUSCULAR VOLUME 91.6 fL (81.4-99.0); PLATELET COUNT,PLT 240 K/uL (130-375); RED BLOOD CELL COUNT 3.56 M/uL (3.77-5.24)
[2022-10-05 05:17] LABS: BAND ABSOLUTE MAN 0.42 K/uL; BAND PERCENT MAN 6 % (5-11); LYMPHOCYTES ABSOLUTE MAN 0.91 K/uL (0.8-3.3); LYMPHOCYTES PERCENT MAN 13 % (24-44); MONOCYTES ABSOLUTE MAN 0.21 K/uL (0.20-0.90); MONOCYTES PERCENT MAN 3 % (2-6); NEUTROPHILS ABSOLUTE MAN 5.46 K/uL (1.0-7.6); SEG NEUTROPHILS PERCENT MAN 78 % (36-66)
[2022-10-05 05:20] LABS: BLOOD UREA NITROGEN,BUN 2 mg/dL (7-18); CARBON DIOXIDE,CO2 26 mmol/L (21-32); CHLORIDE,CL 96 mmol/L (100-108); CREATININE 0.6 mg/dL (0.6-1.0); GLUCOSE RANDOM 254 mg/dL (74-106); POTASSIUM,K 4.5 mmol/L (3.6-5.2); SODIUM,NA 130 mmol/L (140-148)
[2022-10-05 05:21] LABS: A/G RATIO 0.6 (1.2-2.2); ALANINE AMINOTRANSFERASE,ALT 32 U/L (12-78); ALBUMIN 2.3 g/dL (3.4-5.0); ALKALINE PHOSPHATASE 74 U/L (46-116); ASPARTATE AMNIOTRANSFERASE,AST 21 U/L (15-37); BILIRUBIN TOTAL 0.9 mg/dL (0.2-1.0); CALCIUM 8.1 mg/dL (8.5-10.1); EST CRCL DRUG DOSING (CG) 104.23 mL/min; ESTIMATED GFR 107 mL/min (>60); PHOSPHORUS 3.6 mg/dL (2.5-4.9); PRO B-TYPE NATRIUR PEPT,BNPPRO 1345 pg/mL (5-125); PROTEIN TOTAL,TP 6.2 g/dL (6.4-8.2)
[2022-10-05 05:25] LABS: ANION GAP 12.5 mmol/L (5.0-14.0)
[2022-10-05] MEDS: Linezolid 600 MG in Premix Bag 1 BAG IV SCH ×2 (05:28→17:16)
[2022-10-05] MEDS: fentaNYL/Normal Saline 600 MCG/30 ML PCA Vial IV PRN (06:35)
[2022-10-05] MEDS: Acetaminophen 500 MG Tab PO SCH ×3 (06:37→23:15)
[2022-10-05] MEDS: Estradiol 0.5 MG Tab PO SCH (08:16)
[2022-10-05] MEDS: Heparin Sodium 5,000 Units/ML Vial SUBCUT SCH ×2 (08:17→20:12)
[2022-10-05] MEDS: Levothyroxine 25 MCG Tab PO SCH (08:17)
[2022-10-05] MEDS: Celecoxib 200 MG Cap PO SCH ×2 (08:17→20:14)
[2022-10-05] MEDS: Metoprolol Tartrate 25 MG Tab PO SCH ×2 (08:18→20:14)
[2022-10-05] MEDS: SCOPOLAMINE PATCH CHECK TOP SCH (08:19)
[2022-10-05] MEDS: Cyclobenzaprine 10 MG Tab PO PRN ×2 (08:32→19:50)
[2022-10-05] MEDS: Dextrose 5%-Lactated Ringers 1,000 ML IV SCH (09:11)
[2022-10-05] MEDS: hydrOXYzine HCl 50 MG/ML SDV IM PRN (17:01)
[2022-10-05] MEDS: Pantoprazole 40 MG Vial IV SCH (17:10)
[2022-10-05] MEDS: MVI, Adult with Vitamin K 10 ML, Thiamine 200 MG, Zinc/Copper/Manganese/Selenium 1 ML i... IV SCH ×4 (19:51)
[2022-10-06] MEDS: Cyclobenzaprine 10 MG Tab PO PRN ×2 (03:37→19:56)
[2022-10-06] MEDS: Linezolid 600 MG in Premix Bag 1 BAG IV SCH ×2 (05:33→16:25)
[2022-10-06] MEDS: Acetaminophen 500 MG Tab PO SCH ×3 (05:36→21:36)
[2022-10-06] MEDS: fentaNYL/Normal Saline 600 MCG/30 ML PCA Vial IV PRN (05:38)
[2022-10-06] MEDS: Dextrose 5%-Lactated Ringers 1,000 ML IV SCH (05:42)
[2022-10-06] MEDS ORDERED: Bupivacaine 0.5% 50 ML MDV ONE (06:39)
[2022-10-06] MEDS ORDERED: Meropenem 500 MG SDV ONE (06:39)
[2022-10-06] MEDS ORDERED: Lidocaine 1% with EPINEPHrine 1:100,000 50 ML MDV ONE (06:40)
[2022-10-06] MEDS ORDERED: Propofol 200 MG/20 ML SDV ONE ×3 (06:58→08:11)
[2022-10-06] MEDS ORDERED: Midazolam 1 MG/ML 2 ML SDV ONE (06:58)
[2022-10-06] MEDS ORDERED: fentaNYL 50 MCG/ML SDV ONE (06:58)
[2022-10-06] MEDS: Meropenem 500 MG in Sodium Chloride 0.9% 50 ML IV SCH ×2 (07:14→13:14)
[2022-10-06] MEDS ORDERED: Ropivacaine 34 ML, dexAMETHasone 8 MG, EPINEPHrine 0.4 MG, Sodium Chloride 0.9% 43.6 ML NERVRT SCH ×4 (07:30)
[2022-10-06] MEDS ORDERED: Cyanocobalamin (Vitamin B12) 1,000 MCG/ML SDV IM ONE (09:00)
[2022-10-06] MEDS: Heparin Sodium 5,000 Units/ML Vial SUBCUT SCH ×2 (09:51→21:31)
[2022-10-06] MEDS: Estradiol 0.5 MG Tab PO SCH (09:52)
[2022-10-06] MEDS: Levothyroxine 25 MCG Tab PO SCH (09:52)
[2022-10-06] MEDS: Celecoxib 200 MG Cap PO SCH ×2 (09:52→21:34)
[2022-10-06] MEDS: Metoprolol Tartrate 25 MG Tab PO SCH ×2 (09:53→21:35)
[2022-10-06] MEDS: SCOPOLAMINE PATCH CHECK TOP SCH (09:56)
[2022-10-06] MEDS ORDERED: Dextrose 5%-Lactated Ringers 1,000 ML IV SCH (10:00)
[2022-10-06] MEDS: Docusate Sodium 100 MG Cap PO SCH ×2 (11:42→21:34)
[2022-10-06] MEDS: Bisacodyl 5 MG Tab PO SCH ×2 (11:42→21:34)
[2022-10-06] MEDS: Pantoprazole 40 MG Vial IV SCH (16:24)
[2022-10-06] MEDS: HYDROmorphone 2 MG Tab PO PRN ×2 (18:11→22:05)
[2022-10-06] MEDS: Linezolid 600 MG Tab PO SCH (18:11)
[2022-10-07] MEDS: Calcium Carbonate 500 MG Tab.Chew PO PRN ×2 (01:21→05:12)
[2022-10-07] MEDS: HYDROmorphone 2 MG Tab PO PRN (02:10)
[2022-10-07] MEDS: Acetaminophen 500 MG Tab PO SCH (05:13)
[2022-10-07 07:11] VITALS: BP 153/85; PULSE 72
[2022-10-07] MEDS: Estradiol 0.5 MG Tab PO SCH (08:05)
[2022-10-07] MEDS: Metoprolol Tartrate 25 MG Tab PO SCH (08:05)
[2022-10-07] MEDS: Docusate Sodium 100 MG Cap PO SCH (08:05)
[2022-10-07] MEDS: Levothyroxine 25 MCG Tab PO SCH (08:06)
[2022-10-07] MEDS: Heparin Sodium 5,000 Units/ML Vial SUBCUT SCH (08:06)
[2022-10-07] MEDS: Bisacodyl 5 MG Tab PO SCH (08:06)
[2022-10-07] MEDS: Celecoxib 200 MG Cap PO SCH (08:06)
[2022-10-07] MEDS: Linezolid 600 MG Tab PO SCH (08:30)
[2022-10-07] MEDS ORDERED: Magnesium Hydroxide 400 MG/5 ML Susp 30 ML Cup PO ONE (10:00)
== END 2022-10-07 11:52 | disposition home or self-care (01) | DRG 329 ==
LOC: JP.MS 15:00 → UNDOADMIN 15:14 → JP.MS 15:14
PROVIDERS: ADMIT Surgery; ATTEND Physician Assistant Medical
PROC: 0DBA0ZZ Excision of Jejunum, Open Approach (ICD-10-PCS; 2022-10-04)
PROC: 0W9G0ZX Drainage of Peritoneal Cavity, Open Approach, Diagnostic (ICD-10-PCS; 2022-10-04)
PROC: 3E0M05Z Introduction of Adhesion Barrier into Peritoneal Cavity, Open Approach (ICD-10-PCS; 2022-10-04)
PROC: 0WQF0ZZ Repair Abdominal Wall, Open Approach (ICD-10-PCS; principal; 2022-10-06)
DX: K91.89 Other postprocedural complications and disorders of digestive system (principal); K56.2 Volvulus; K65.1 Peritoneal abscess; K95.89 Other complications of other bariatric procedure; M79.7 Fibromyalgia; F41.1 Generalized anxiety disorder; F32.9 Major depressive disorder, single episode, unspecified; J45.20 Mild intermittent asthma, uncomplicated; M13.0 Polyarthritis, unspecified; F43.10 Post-traumatic stress disorder, unspecified; E78.00 Pure hypercholesterolemia, unspecified; R63.4 Abnormal weight loss; Z68.23 Body mass index [BMI] 23.0-23.9, adult; Z79.899 Other long term (current) drug therapy; Z98.890 Other specified postprocedural states
CPT/HCPCS: 36415; 74177; 74240; 74240-26; 80053; 83735; 83880; 84100; 85025; 85027; 87070; 87075; 87077; 87205; 88307; A9270-GY; C9113; J0131; J0171; J0330; J1100; J1644; J2020; J2185; J2250; J2405; J2704; J2710; J2795; J3010; J3410; J3411; J3420; J3475; J3490; J7050; J7121; Q9967; U0002

== ENCOUNTER 2023-07-05 07:53 | Day surgery (SDC) | payer MEDICARE ==
[~2023-07-05 07:53] MED LIST changes: -Bupivacaine 0.5% 50 ML MDV ONE; -Dexamethasone 4 MG/ML SDV ONE; -Glycopyrrolate 0.2 MG/ML 5 ML MDV ONE; -Lidocaine 1% with EPINEPHrine 1:100,000 50 ML MDV ONE; -Meropenem 500 MG SDV ONE; +Midazolam 1 MG/ML 2 ML SDV ONE; -Neostigmine Methylsulfate 1 MG/ML 5 ML Syringe ONE; -Ondansetron 4 MG/2 ML SDV ONE; -Rocuronium 50 MG/5 ML Vial ONE; -Succinylcholine 200 MG/10 ML MDV ONE; -fentaNYL 250 MCG/5 ML SDV ONE; +fentaNYL 50 MCG/ML SDV ONE
[2023-07-05] MEDS: Lactated Ringers 1,000 ML IV SCH (08:45)
[2023-07-05 10:20] VITALS: BP 123/58; PULSE 55
== END 2023-07-05 10:35 | disposition home or self-care (01) ==
LOC: JP.SDS 07:53
PROVIDERS: ATTEND Student in an Organized Health Care Education/Training Program
DX: K21.9 Gastro-esophageal reflux disease without esophagitis (principal); R10.9 Unspecified abdominal pain; Z87.891 Personal history of nicotine dependence; Z79.899 Other long term (current) drug therapy
CPT/HCPCS: 43239; 88305; J2250; J2704; J3010; J7120

== ENCOUNTER 2024-07-15 05:39 | Day surgery (SDC) | payer MEDICARE ==
[~2024-07-15 05:39] MED LIST changes: +Indocyanine Green 25 MG SDV IV ONE; -Midazolam 1 MG/ML 2 ML SDV ONE; -Propofol 200 MG/20 ML SDV ONE; -fentaNYL 50 MCG/ML SDV ONE
[2024-07-15] MEDS: Indocyanine Green 25 MG SDV IV ONE (06:50)
[2024-07-15] MEDS: Lactated Ringers 1,000 ML IV SCH (07:00)
[2024-07-15] MEDS ORDERED: fentaNYL 250 MCG/5 ML SDV ONE ×3 (07:29→08:43)
[2024-07-15] MEDS ORDERED: Glycopyrrolate 0.2 MG/ML 5 ML MDV ONE (07:31)
[2024-07-15] MEDS ORDERED: Succinylcholine 200 MG/10 ML MDV ONE (07:31)
[2024-07-15] MEDS ORDERED: Ondansetron 4 MG/2 ML SDV ONE (07:31)
[2024-07-15] MEDS ORDERED: Neostigmine Methylsulfate 10 MG/10 ML MDV ONE (07:31)
[2024-07-15] MEDS ORDERED: Propofol 200 MG/20 ML SDV ONE (07:31)
[2024-07-15] MEDS ORDERED: Rocuronium 50 MG/5 ML Vial ONE (07:31)
[2024-07-15] MEDS: Albuterol/Ipratropium 3.0-0.5 MG/3 ML Neb Soln NEB ONE (07:32)
[2024-07-15] MEDS: ceFAZolin 2 GM in Premix Bag 1 BAG IV ONE (07:45)
[2024-07-15] MEDS: metroNIDAZOLE/Normal Saline 500 MG in Premix Bag 1 BAG IV ONE (08:15)
[2024-07-15] MEDS: Lidocaine 1% with EPINEPHrine 1:100,000 50 ML MDV ONE (09:01)
[2024-07-15] MEDS: Bupivacaine 0.5% 50 ML MDV ONE (09:01)
[2024-07-15] MEDS: Ropivacaine 28 ML, dexAMETHasone 8 MG, EPINEPHrine 0.4 MG, Sodium Chloride 0.9% 49.6 ML NERVRT SCH (09:30)
[2024-07-15] MEDS: Meperidine PF 100 MG/ML Syringe IVPUSH ONE (10:24)
[2024-07-15] MEDS: Acetaminophen/HYDROcodone 325-5 MG Tab PO PRN (11:11)
[2024-07-15 12:08] VITALS: BP 134/54; PULSE 61
[2024-07-16] MEDS ORDERED: Indocyanine Green 25 MG SDV IV ONE (06:45)
== END 2024-07-15 13:15 | disposition home or self-care (01) ==
LOC: JP.SDS 05:39
PROVIDERS: ATTEND Surgery
DX: K80.10 Calculus of gallbladder with chronic cholecystitis without obstruction (principal); F41.1 Generalized anxiety disorder; F33.1 Major depressive disorder, recurrent, moderate; J45.20 Mild intermittent asthma, uncomplicated; Z87.891 Personal history of nicotine dependence; Z79.899 Other long term (current) drug therapy; Z88.2 Allergy status to sulfonamides
CPT/HCPCS: 00790-QZ; 88304; 94640; A9270-GY; J0171; J0330; J0665; J0690; J1100; J1596; J1836; J2175; J2405; J2704; J2710; J2795; J3010; J3490; J7120

== ENCOUNTER 2024-12-10 11:27 | Emergency (ER) | payer MEDICARE ==
[2024-12-10 11:53] VITALS: BP 136/79; PULSE 49
[2024-12-10 12:29] LABS: BASOPHILS ABSOLUTE AUTO 0.05 K/uL (0.00-0.10); BASOPHILS PERCENT AUTO 1.1 % (0.1-1.3); EOSINOPHILS ABSOLUTE AUTO 0.25 K/uL (0.00-0.40); EOSINOPHILS PERCENT AUTO 5.6 % (0.0-5.4); IMMATURE GRAN PERCENT AUTO 0.0 % (0.0-0.7); LYMPHOCYTES ABSOLUTE AUTO 1.25 K/uL (0.8-3.3); LYMPHOCYTES PERCENT AUTO 28.0 % (11.4-47.7); MONOCYTES ABSOLUTE AUTO 0.37 K/uL (0.20-0.90); MONOCYTES PERCENT AUTO 8.3 % (3.3-12.6); NEUTROPHILS ABSOLUTE AUTO 2.55 K/uL (1.0-7.6); NEUTROPHILS PERCENT AUTO 57.0 % (40.0-78.1); PLATELET COUNT,PLT 269 K/uL (130-375); RED BLOOD CELL COUNT 3.79 M/uL (3.77-5.24); WHITE BLOOD CELL COUNT,WBC 4.5 K/uL (3.2-11.0)
[2024-12-10 12:35] LABS: IMMATURE GRAN ABSOLUTE AUTO 0.00 K/uL (0.00-0.23)
[2024-12-10 12:50] LABS: A/G RATIO 1.2 (1.2-2.2); ALANINE AMINOTRANSFERASE,ALT 35 U/L (12-78); ASPARTATE AMNIOTRANSFERASE,AST 24 U/L (15-37); BILIRUBIN TOTAL 1.0 mg/dL (0.2-1.0); BLOOD UREA NITROGEN,BUN 13 mg/dL (7-18); CARBON DIOXIDE,CO2 33 mmol/L (21-32); CHLORIDE,CL 104 mmol/L (100-108); CREATININE 0.5 mg/dL (0.6-1.0); EST CRCL DRUG DOSING (CG) 122.17 mL/min; ESTIMATED GFR 110 mL/min (>60); GLUCOSE RANDOM 108 mg/dL (74-106); POTASSIUM,K 3.9 mmol/L (3.6-5.2); PROTEIN TOTAL,TP 6.6 g/dL (6.4-8.2); SODIUM,NA 141 mmol/L (140-148)
== END 2024-12-10 13:33 | disposition home or self-care (01) ==
LOC: JP.ED 11:27
DX: R10.13 Epigastric pain (principal); K21.9 Gastro-esophageal reflux disease without esophagitis; E03.9 Hypothyroidism, unspecified; Z79.899 Other long term (current) drug therapy; Z79.82 Long term (current) use of aspirin; Z88.2 Allergy status to sulfonamides; Z88.5 Allergy status to narcotic agent; Z88.8 Allergy status to other drugs, medicaments and biological substances; Z88.0 Allergy status to penicillin
CPT/HCPCS: 36415; 80053; 85025; 99284

== ENCOUNTER 2024-12-17 06:27 | Day surgery (SDC) | payer MEDICARE ==
[2024-12-17] MEDS: Lactated Ringers 1,000 ML IV SCH (06:54)
[2024-12-17] MEDS ORDERED: fentaNYL 100 MCG/2 ML SDV ONE (07:02)
[2024-12-17] MEDS ORDERED: Propofol 200 MG/20 ML SDV ONE (07:02)
[2024-12-17] MEDS ORDERED: Midazolam 1 MG/ML 2 ML SDV ONE (07:02)
[2024-12-17 08:33] VITALS: PULSE 61
[2024-12-17 08:40] VITALS: BP 128/70
== END 2024-12-17 09:01 | disposition home or self-care (01) ==
LOC: JP.SDS 06:27
PROVIDERS: ATTEND Surgery
DX: R10.9 Unspecified abdominal pain (principal); E66.9 Obesity, unspecified
CPT/HCPCS: 43239; 88305; J2250; J2704; J3010; J7120; J1171

== ENCOUNTER 2025-01-21 09:16 | Day surgery (SDC) | payer MEDICARE ==
[2025-01-21] MEDS ORDERED: Succinylcholine 200 MG/10 ML MDV ONE (09:32)
[2025-01-21] MEDS ORDERED: Glycopyrrolate 0.2 MG/ML 5 ML MDV ONE (09:32)
[2025-01-21] MEDS ORDERED: fentaNYL 250 MCG/5 ML SDV ONE (09:32)
[2025-01-21] MEDS ORDERED: Dexamethasone 4 MG/ML SDV ONE (09:32)
[2025-01-21] MEDS ORDERED: Propofol 200 MG/20 ML SDV ONE (09:32)
[2025-01-21] MEDS ORDERED: Ondansetron 4 MG/2 ML SDV ONE (09:32)
[2025-01-21 09:55] LABS: PLATELET COUNT,PLT 223.0 K/uL (130-375); RED BLOOD CELL COUNT 3.87 M/uL (3.77-5.24); WHITE BLOOD CELL COUNT,WBC 3.9 K/uL (3.2-11.0)
[2025-01-21] MEDS: Lactated Ringers 1,000 ML IV SCH (10:08)
[2025-01-21 10:19] LABS: A/G RATIO 1.4 (1.2-2.2); ALANINE AMINOTRANSFERASE,ALT 34 U/L (12-78); ASPARTATE AMNIOTRANSFERASE,AST 26 U/L (15-37); BILIRUBIN TOTAL 1.0 mg/dL (0.2-1.0); BLOOD UREA NITROGEN,BUN 11 mg/dL (7-18); CARBON DIOXIDE,CO2 30 mmol/L (21-32); CHLORIDE,CL 105 mmol/L (100-108); CREATININE 0.5 mg/dL (0.6-1.0); EST CRCL DRUG DOSING (CG) 120.72 mL/min; ESTIMATED GFR 109 mL/min (>60); GLUCOSE RANDOM 99 mg/dL (74-106); POTASSIUM,K 4.0 mmol/L (3.6-5.2); PROTEIN TOTAL,TP 6.2 g/dL (6.4-8.2); SODIUM,NA 142 mmol/L (140-148)
[2025-01-21] MEDS: metroNIDAZOLE/Normal Saline 500 MG in Premix Bag 1 BAG IV ONE (11:14)
[2025-01-21] MEDS ORDERED: Acetaminophen/HYDROcodone 325-5 MG Tab PO PRN (14:49)
[2025-01-21 16:11] VITALS: PULSE 53
[2025-01-21 16:46] VITALS: BP 143/81
== END 2025-01-21 16:55 | disposition home or self-care (01) ==
LOC: JP.SDS 09:16
PROVIDERS: ATTEND Surgery
DX: K43.9 Ventral hernia without obstruction or gangrene (principal); K66.0 Peritoneal adhesions (postprocedural) (postinfection); E78.00 Pure hypercholesterolemia, unspecified; K31.84 Gastroparesis; E03.9 Hypothyroidism, unspecified; Z88.1 Allergy status to other antibiotic agents; Z88.2 Allergy status to sulfonamides; Z88.8 Allergy status to other drugs, medicaments and biological substances; Z88.5 Allergy status to narcotic agent; Z79.82 Long term (current) use of aspirin; Z87.891 Personal history of nicotine dependence; Z79.899 Other long term (current) drug therapy; Z79.890 Hormone replacement therapy
CPT/HCPCS: 36415; 49595; 80053; 85027; C1781; J0169; J0330; J0665; J0690; J1100; J1596; J1836; J2405; J2704; J2710; J2795; J3010; J7120; 00832-QZ; J3490